=== PATIENT | male | born 1965 | race Caucasian/White ===

== ENCOUNTER 2017-01-01 08:00 | Outpatient (CLI) | payer BC ==
[2017-01-01 18:25] LABS: BUN - BLOOD UREA NITROGEN 11 mg/dL (6-20); CALCIUM 9.2 mg/dL (8.5-10.3); CARBON DIOXIDE - CO2 27 mmol/L (21-32); CHLORIDE 104 mmol/L (101-111); CHOLESTEROL 159 mg/dL; CREATININE 0.9 mg/dL (0.6-1.2); GFR - MDRD 89 (>89); GLUCOSE 103 mg/dL (70-100); HDL CHOLESTEROL 40 mg/dL; LDL/HDL RATIO 2.4 (<3.6); SODIUM 138 mmol/L (135-145); TRIGLYCERIDES 121 mg/dL; VLDL CHOLESTEROL 24 mg/dL
== END 2017-01-01 23:59 ==
LOC: LAB.F 08:00
PROVIDERS: ATTEND Internal Medicine
DX: I10 Essential (primary) hypertension (principal)
CPT/HCPCS: 36415; 80048; 80061

== ENCOUNTER 2017-11-22 08:00 | Outpatient (CLI) | payer BC ==
[2017-11-22 19:21] LABS: BUN - BLOOD UREA NITROGEN 14 mg/dL (6-20); CALCIUM 9.5 mg/dL (8.5-10.3); CARBON DIOXIDE - CO2 28 mmol/L (21-32); CHLORIDE 96 mmol/L (101-111); CHOL/HDL RATIO 5.6 (<5.0); CHOLESTEROL 222 mg/dL; CREATININE 0.9 mg/dL (0.6-1.2); GFR - MDRD 89 (>89); GLUCOSE 114 mg/dL (70-100); HDL CHOLESTEROL 40 mg/dL; SODIUM 134 mmol/L (135-145)
[2017-11-22 19:43] LABS: LDL CHOLESTEROL,DIRECT 107 mg/dL; LDLD/HDL RATIO 2.7 (<3.6)
== END 2017-11-22 08:01 | disposition home or self-care (01) ==
LOC: LAB.F 08:00
PROVIDERS: ATTEND Internal Medicine
DX: I10 Essential (primary) hypertension (principal)
CPT/HCPCS: 36415; 80048; 80061; 83721; 84443

== ENCOUNTER 2018-06-29 14:58 | Outpatient (CLI) | payer BC ==
[2018-06-29 17:45] LABS: ALBUMIN 4.3 g/dL (3.2-5.5); ALBUMIN/GLOBULIN RATIO 1.4 (1.0-2.2); BILIRUBIN,TOTAL 0.6 mg/dL (0.2-1.0); CALCIUM 9.5 mg/dL (8.5-10.3); TOTAL PROTEIN 7.4 g/dL (6.7-8.2)
== END 2018-06-29 23:59 | disposition home or self-care (01) ==
LOC: LAB.F 14:58
PROVIDERS: ATTEND Physician Assistant Medical
DX: I10 Essential (primary) hypertension (principal)
CPT/HCPCS: 36415; 80053

== ENCOUNTER 2018-07-01 16:30 | Outpatient (CLI) | payer BC ==
--- NOTE | 2018-07-01 17:34 | XRAY Report ---
Reason: PAIN IN LT KNEE Procedure Date: 07/01/2018 Accession Number: [id number] / [id number] Procedure: XR - Knee 3 View LT CPT Code: FULL RESULT: EXAM: LEFT KNEE RADIOGRAPHY EXAM DATE: 07/01/2018 04:41 PM. CLINICAL HISTORY: Fall onto concrete 2 weeks ago. Left patellar pain. COMPARISON: None. TECHNIQUE: 3 views. FINDINGS: Bones: 1 x 2 cm bone fragment superolateral aspect of the patella, 4 mm separation. This appears to be well corticated. No offset at the articular cortex. No focal edema over this region. Joints: Tiny effusion. Mild narrowing of the lateral facet patellofemoral compartment without bony reactive changes. Normal medial and lateral compartments. Bones in anatomic alignment. Soft Tissues: Moderate edema over the medial aspect of the patella. IMPRESSION: 1. 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 Correlate with patient area of concern since the greatest degree of anterior knee edema is medial. 2. Tiny joint effusion. 3. Minimal chondromalacia patella. RADIA
== END 2018-07-01 16:31 | disposition home or self-care (01) ==
LOC: DI 16:30
PROVIDERS: ATTEND Physician Assistant Medical
DX: M25.462 Effusion, left knee (principal); M22.42 Chondromalacia patellae, left knee

== ENCOUNTER 2019-01-07 07:55 | Outpatient (CLI) | payer BC ==
[2019-01-07 09:25] LABS: BASOPHILS # (AUTO) 0.1 10^3/uL (0.0-0.1); BASOPHILS % (AUTO) 1.1 %; EOSINOPHILS # (AUTO) 0.1 10^3/uL (0.0-0.7); EOSINOPHILS % (AUTO) 1.8 %; HGB - HEMOGLOBIN 14.6 g/dL (14.0-18.0); LYMPHOCYTES # (AUTO) 2.1 10^3/uL (1.5-3.5); LYMPHOCYTES % (AUTO) 36.8 %; MEAN CORPUSCULAR HEMOGLOBIN 30.7 pg (27.0-31.0); MEAN CORPUSCULAR HGB CONC 34.1 g/dL (32.0-36.0); MEAN CORPUSCULAR VOLUME 90.3 fL (80.0-94.0); MEAN PLATELET VOLUME 7.4 fL (7.4-11.4); MONOCYTES # (AUTO) 0.4 10^3/uL (0.0-1.0); MONOCYTES % (AUTO) 7.7 %; NEUTROPHILS # (AUTO) 3.1 10^3/uL (1.5-6.6); NEUTROPHILS % (AUTO) 52.6 %; PLT - PLATELET COUNT 222 10^3/uL (130-450); RED BLOOD COUNT 4.74 10^6/uL (4.70-6.10); RED CELL DISTRIBUTION WIDTH 12.9 % (12.0-15.0); WHITE BLOOD COUNT 5.8 x10^3/uL (4.8-10.8)
[2019-01-07 09:46] LABS: CHOLESTEROL 179 mg/dL; HDL CHOLESTEROL 45 mg/dL; LDL CHOLESTEROL,CALCULATED 110 mg/dL; LDL/HDL RATIO 2.4 (<3.6); VLDL CHOLESTEROL 24 mg/dL
--- NOTE | 2019-01-07 15:34 | Ultrasound Report ---
Reason: LEG PAIN, LEFT Procedure Date: 01/07/2019 Accession Number: [id number] / [id number] Procedure: US - Duplex Ext Veins Left CPT Code: FULL RESULT: EXAM: LEFT LOWER EXTREMITY VENOUS ULTRASOUND EXAM DATE: 01/07/2019 08:09 AM. CLINICAL HISTORY: LEG PAIN, LEFT. COMPARISON: None. TECHNIQUE: Real-time sonographic vascular imaging was performed by the insole tape stitcher uco through the lower extremity utilizing both color-flow and Doppler spectral analysis. Multiple agency sales representative static images were saved for review. FINDINGS: Common Femoral Vein (CFV): Normal. CFV-GSV Junction: Normal. Profunda Femoral Vein (PFV): Normal. Femoral Vein (FV) Prox: Normal. Femoral Vein (FV) Mid: Normal. Femoral Vein (FV) Dist: Normal. Popliteal Vein: Normal. Posterior Tibial Veins: Normal. Peroneal Veins: Normal. Contralateral Side CFV: Normal. Other: Study limited by bandages and body habitus. Multiple prominent left inguinal lymph nodes with the largest measuring 4.2 x 1.5 x 2.8 cm. No cortical thickening is noted. IMPRESSION: 1. Study limited by body habitus. 2. Multiple prominent left inguinal nodes measuring up to 4.2 x 1.5 x 2.8 cm. 3. No evidence for deep venous thrombosis. RADIA
--- NOTE | 2019-01-09 09:24 | Ultrasound Report ---
Reason: LEG PAIN, LEFT Procedure Date: 01/07/2019 Accession Number: [id number] / [id number] Procedure: US - Duplex Lwr Ext Arterial Bilat CPT Code: FULL RESULT: EXAM: BILATERAL LOWER EXTREMITY ARTERIAL DOPPLER ULTRASOUND EXAM DATE: 01/07/2019 09:20 AM. CLINICAL HISTORY: Leg pain, left. COMPARISON: None. TECHNIQUE: Real-time sonographic vascular imaging was performed by the reservation sales agent, utilizing color-flow, Doppler flow, and spectral analysis. Multiple desk representative static images were saved for review. FINDINGS: Right lower extremity arterial duplex is performed. Vessels are evaluated by grayscale, color Doppler and spectral Doppler. Morphologically, there is no significant focal atherosclerotic disease on grayscale Doppler. All sampled vessels are patent by color Doppler as named below. Spectral Doppler reveals preserved arterial waveforms with brisk systolic upstrokes throughout both lower extremities. The bilateral peroneal arteries are not identified. The following peak systolic velocities are recorded in centimeters per second: Right Lower Extremity: ELECTRONICS MECHANIC APPRENTICE: PSV 95 cm/sec. PSFA: PSV 103 cm/sec. MSFA: PSV 103 cm/sec. DSFA: PSV 99 cm/sec. PFA: PSV 82 cm/sec. POP: PSV 62 cm/sec. HITESH: PSV 39 cm/sec. FILM DEVELOPER: PSV 47 cm/sec. COURTNEY: Not seen. DPA: PSV 20 cm/sec. Left Lower Extremity: ELECTRONICS MECHANIC APPRENTICE: PSV 101 cm/sec. PSFA: PSV 144 cm/sec. MSFA: PSV 114 cm/sec. DSFA: PSV 119 cm/sec. PFA: PSV 101 cm/sec. POP: PSV 98 cm/sec. HITESH: PSV 56 cm/sec. FILM DEVELOPER: PSV 55 cm/sec. COURTNEY: Not seen. DPA: PSV 44 cm/sec. IMPRESSION: Preserved brisk systolic upstrokes throughout both lower extremities with 2 vessel patency to the ankle and good waveform in the dorsalis pedis arteries. Nonvisualization of the peroneal arteries. RADIA
== END 2019-01-07 07:56 | disposition home or self-care (01) ==
LOC: DI 07:55
PROVIDERS: ATTEND Physician Assistant Medical
DX: M79.605 Pain in left leg (principal); R59.0 Localized enlarged lymph nodes; E78.5 Hyperlipidemia, unspecified
CPT/HCPCS: 36415; 80061; 83721; 85025; 93925

== ENCOUNTER 2019-01-09 14:06 | Emergency (ER) | payer BC ==
[2019-01-09] MEDS ORDERED: cefTRIAXone 1 GM VIAL IVP STA (16:44)
[2019-01-09] MEDS ORDERED: VANCOMYCIN INJ 1 GM in SODIUM CHLORIDE 0.9% 500 ML IV STA (16:47)
[2019-01-09] MEDS ORDERED: MUPIROCIN 2% OINT 1 GM TOP STA (16:48)
--- NOTE | 2019-01-09 16:48 | ED Physician Documentation ---
PD HPI SKIN - Stated complaint Stated Complaint: L LEG PX/ SENT BY - Chief complaint Chief Complaint: Ext Problem - History obtained from History obtained from: Patient - History of Present Illness Timing - onset: How many days ago (has had swelling and tenderness with some skin weeping of both legs but more left. Had U/S several days ago which was neg. Has developed areas of redness and tenderness since then. Talked with his vascular surgeon, who directed him to the ER to get IV abs for concern of cellulitis.) Timing - details: Gradual onset Location: LLE Quality / character: Painful, Discolored (red), Swelling, Draining (from prior skin lesions lower leg, but no draining from new red areas.) Associated symptoms: No: Fever, Myalgias Similar symptoms before: Has not had sx before Recently seen: Clinic, Other (had DUplex left leg last week) Review of Systems Constitutional: denies: Fever, Chills, Myalgias Skin: reports: Rash Neurologic: denies: Focal weakness, Numbness PD PAST MEDICAL HISTORY - Past Medical History Past Medical History: Yes Cardiovascular: Hypertension Other Past Medical History: denies other - Past Surgical History Past Surgical History: No - Present Medications Home Medications: Ambulatory Orders Medication Instructions Recorded Confirmed Cephalexin [Keflex] 500 mg PO TID #21 capsule 01/09/19 Doxycycline Hyclate 100 mg PO BID #14 capsule 01/09/19 Losartan Potassium 25 mg PO 01/09/19 01/09/19 Mupirocin 1 applic TP TID #15 g 01/09/19 Triamterene/Hydrochlorothiazid 1 each PO 01/09/19 [Triamterene-Hctz 37.5-25 mg Cp] - Allergies Allergies/Adverse Reactions: Allergies Allergy/AdvReac Type Severity Reaction Status Date / Time No Known Drug Allergies Allergy Verified 01/09/19 14:18 - Social History Does the pt smoke?: No Smoking Status: Never smoker Does the pt drink ETOH?: Yes ETOH Use: Beer, Liquor Does the pt have substance abuse?: No - Immunizations Immunizations are current?: Yes PD ED PE NORMAL - Vitals Vital signs reviewed: Yes - General General: Alert and oriented X 3, Well developed/nourished - Derm Derm: Normal color, Warm and dry - Extremities Extremities: Other (both legs with some scaling and weeping on lower part of legs, mostly anterior. The left leg has also bright redness with tender and no skin lesions on back upper calf and medial thigh area with some feeling of firmness subcut, somewhat linear. Feels c/w phlebitis, presume secondary to duplex compression. The bright redness is not confluent with lower leg scaliness. ) Results - Vitals Vitals: Oxygen O2 Source Room air - Labs Labs: Laboratory Tests 01/09/19 01/09/19 16:50 16:50 WBC 5.4 RBC 4.38 L Hgb 13.8 L Hct 39.8 L MCV 90.9 MCH 31.4 H MCHC 34.5 RDW 13.1 Plt Count 195 MPV 7.7 Neut # (Auto) 2.7 Lymph # (Auto) 2.0 [place] # (Auto) 0.6 Eos # (Auto) 0.1 Baso # (Auto) 0.0 Absolute Nucleated RBC 0.00 Nucleated RBC % 0.1 Sodium 137 Potassium 3.7 Chloride 101 Carbon Dioxide 25 Anion Gap 11.0 BUN 12 Creatinine 1.0 Estimated GFR (MDRD) 78 L Glucose 127 H Calcium 8.7 Total Bilirubin 0.7 AST 30 ALT 41 Alkaline Phosphatase 48 Total Protein 7.0 Albumin 3.9 Globulin 3.1 Albumin/Globulin Ratio 1.3 Lipase 24 PD MEDICAL DECISION MAKING - ED course Complexity details: considered differential (had duplex recently without DVT. His redness/symptoms actually seem c/w superficial phlebitis, and I think anot her Duplex would actually worsen it. Consider cellulitis, but not clearly so. His vascular surgeon sent him for IV abx, and is not unreasonable, so can do that to cover staph and strep. ), d/w patient Departure - Departure Disposition: 01 Home, Self Care Clinical Impression: Leg swelling, Superficial phlebitis Cellulitis Qualifiers: Site of cellulitis: extremity Site of cellulitis of extremity: lower extremity Laterality: left Qualified Code(s): L03.116 - Cellulitis of left lower limb Condition: Stable Record reviewed to determine appropriate education?: Yes Instructions: ED Infec Skin Cellulitis, ED Phlebitis Superficial Follow-Up: Leesa Drake PA-C [Primary Care Provider] - Prescriptions: Cephalexin [Keflex] 500 mg PO TID #21 capsule Doxycycline Hyclate 100 mg PO BID #14 capsule Mupirocin 1 applic TP TID #15 g Comments: The redness around the thigh and possibly the redness in the calf area look like irritation of the surface veins called phlebitis. This would be treated with local warm compresses. He can use some anti-inflammatories such as naproxen or ibuprofen twice daily. Around the lower part of the leg where the skin sores are and then the calf part close to it could be a skin infection. Clean the lower leg with soap and water and apply mupirocin antibiotic ointment twice daily. Use the cephalexin and doxycycline oral antibiotics as directed for a week. Follow-up with your primary care in the next 2 to 3 days, call for an appointment. This will be to see how improvement you are getting. Return if worsening overall. You could follow-up with your vascular surgeon as well and in May even be a more appropriate follow-up if he has appointments available this week. Forms: Activity restrictions Discharge Date/Time: 01/09/19 18:44
[2019-01-09 17:29] LABS: BASOPHILS % (AUTO) 0.6 %; EOSINOPHILS # (AUTO) 0.1 10^3/uL (0.0-0.7); EOSINOPHILS % (AUTO) 1.6 %; HGB - HEMOGLOBIN 13.8 g/dL (14.0-18.0); LYMPHOCYTES % (AUTO) 37.3 %; MEAN CORPUSCULAR HEMOGLOBIN 31.4 pg (27.0-31.0); MEAN CORPUSCULAR HGB CONC 34.5 g/dL (32.0-36.0); MEAN CORPUSCULAR VOLUME 90.9 fL (80.0-94.0); MEAN PLATELET VOLUME 7.7 fL (7.4-11.4); MONOCYTES # (AUTO) 0.6 10^3/uL (0.0-1.0); MONOCYTES % (AUTO) 11.3 %; NEUTROPHILS # (AUTO) 2.7 10^3/uL (1.5-6.6); NEUTROPHILS % (AUTO) 49.2 %; PLT - PLATELET COUNT 195 10^3/uL (130-450); RED BLOOD COUNT 4.38 10^6/uL (4.70-6.10); RED CELL DISTRIBUTION WIDTH 13.1 % (12.0-15.0); WHITE BLOOD COUNT 5.4 x10^3/uL (4.8-10.8)
[2019-01-09 17:47] VITALS: BP 157/97
[2019-01-09 17:47] LABS: ALBUMIN 3.9 g/dL (3.2-5.5); ALBUMIN/GLOBULIN RATIO 1.3 (1.0-2.2); BILIRUBIN,TOTAL 0.7 mg/dL (0.2-1.0); CALCIUM 8.7 mg/dL (8.5-10.3)
[2019-01-09] MEDS ORDERED: diphenhydrAMINE INJ 50 MG/ML VIAL IVP STA (18:12)
[2019-01-09] MEDS ORDERED: diphenhydrAMINE INJ 50 MG/ML VIAL ONE (18:21)
== END 2019-01-09 18:44 | disposition home or self-care (01) ==
LOC: ED 14:06
DX: I80.02 Phlebitis and thrombophlebitis of superficial vessels of left lower extremity (principal); L03.116 Cellulitis of left lower limb; I10 Essential (primary) hypertension
CPT/HCPCS: 36415; 80053; 83690; 85025; 96365; 96375; 99283; A9270; J1200; J3370

== ENCOUNTER 2019-02-21 13:45 | Emergency (ER) | payer BC ==
[2019-02-21] MEDS ORDERED: HYDROcod/ACETAM 5/325 MG TABLET PO STA (13:59)
--- NOTE | 2019-02-21 14:01 | ED Physician Documentation ---
PD HPI HEADACHE - Stated complaint Stated Complaint: [place] - Chief complaint Chief Complaint: Neuro - History obtained from History obtained from: Patient - History of Present Illness Timing - onset: Other (Previously pretty healthy 53-year-old alex, has some issues with recurrent cellulitis and vascular insufficiency in the left leg presents with 2 days of body aches, chills, fever up to 102.9 last night associated with a headache and nausea. Mild cough. No urinary complaints or abdominal pain. No troubles with bowel movement. No sick contacts. No Travel.) Review of Systems Constitutional: reports: Fever, Chills, Myalgias, Fatigue Ears: denies: Loss of hearing, Ear pain Nose: denies: Rhinorrhea / runny nose, Congestion Throat: denies: Sore throat Respiratory: reports: Cough. denies: Dyspnea GI: denies: Abdominal Pain, Nausea, Diarrhea PD PAST MEDICAL HISTORY - Past Medical History Cardiovascular: Hypertension - Past Surgical History Past Surgical History: No - Present Medications Home Medications: Ambulatory Orders Medication Instructions Recorded Confirmed Cephalexin [Keflex] 500 mg PO TID #21 capsule 01/09/19 Doxycycline Hyclate 100 mg PO BID #14 capsule 01/09/19 Losartan Potassium 25 mg PO 01/09/19 01/09/19 Mupirocin 1 applic TP TID #15 g 01/09/19 Triamterene/Hydrochlorothiazid 1 each PO 01/09/19 [Triamterene-Hctz 37.5-25 mg Cp] Clindamycin HCl [Clindamycin 300MG 300 mg PO Q6H #28 capsule 02/21/19 CAP] Oxycodone HCl/Acetaminophen 1 - 2 each PO Q6H PRN #14 tablet 02/21/19 [Percocet 5-325 mg Tablet] - Allergies Allergies/Adverse Reactions: Allergies Allergy/AdvReac Type Severity Reaction Status Date / Time No Known Drug Allergies Allergy Verified 02/21/19 13:51 - Social History Does the pt smoke?: No Smoking Status: Never smoker Does the pt drink ETOH?: Yes Does the pt have substance abuse?: No - Immunizations Immunizations are current?: Yes PD ED PE NORMAL - Vitals Vital signs reviewed: Yes - General General: Alert and oriented X 3, No acute distress - HEENT HEENT: PERRL, EOMI, Pharynx benign - Neck Neck: Supple, no meningeal sign, No bony TTP - Cardiac Cardiac: RRR, No murmur - Respiratory Respiratory: No respiratory distress, Clear bilaterally - Abdomen Abdomen: Non tender - Back Back: No CVA TTP, No spinal TTP - Derm Derm: Normal color, Warm and dry, Other (He has chronic venous stasis changes and chronic appearing cellulitis of the left leg that his significant other says is really no better or worse than normal.) - Neuro Neuro: Alert and oriented X 3, Normal speech Results - Vitals Vitals: Vital Signs - 24 hr 02/21/19 13:50 Temperature 37.5 C Heart Rate 94 Respiratory 20 Rate Blood Pressure 113/76 O2 Saturation 97 Oxygen O2 Source Room air - Labs Labs: Laboratory Tests 02/21/19 02/21/19 02/21/19 14:14 14:14 14:14 WBC 10.2 RBC 4.60 L Hgb 14.5 Hct 42.8 MCV 93.0 MCH 31.5 H MCHC 33.9 RDW 13.0 Plt Count 219 MPV 9.2 Neut # (Auto) 8.2 H Lymph # (Auto) 1.2 L [place] # (Auto) 0.7 Eos # (Auto) 0.0 Baso # (Auto) 0.0 Absolute Nucleated RBC 0.00 Nucleated RBC % 0.0 Sodium 134 L Potassium 3.9 Chloride 94 L Carbon Dioxide 26 Anion Gap 14.0 H BUN 13 Creatinine 1.1 Estimated GFR (MDRD) 70 L Glucose 135 H Lactic Acid 1.5 Calcium 9.0 Total Bilirubin 0.9 AST 28 ALT 40 Alkaline Phosphatase 51 Total Protein 7.4 Albumin 4.1 Globulin 3.3 Albumin/Globulin Ratio 1.2 Lipase 24 - Rads (name of study) Ct Head Radiology: EMP read contemporaneously (NAD) 2v Chest Radiology: EMP read contemporaneously (NAD) PD MEDICAL DECISION MAKING - ED course ED course: 53-year-old gentleman with what sounds like a flulike illness composed of fevers, myalgias, and headache. His examination is normal with a supple neck b oth initially and on reevaluation just prior to discharge 3:13 PM. He also admits that there is absolutely no pain with neck flexion. Therefore I think meningitis is exceedingly unlikely. Otherwise his work-up here was negative. No evidence of pneumonia, sinusitis, intracranial hemorrhage. No UTI symptoms. No abdominal pain. On reexamination prior to discharge though he had a Band-Aid on the left lower extremity it was removed and he had a purulent ulcer there with surrounding cellulitis that now his significant other says is worse than normal and will be treated with clindamycin, noting that we cannot use sulfa drugs because he is on an angiotensin receptor arnaldo. A culture was obtained. Departure - Departure Disposition: 01 Home, Self Care Clinical Impression: Viral syndrome, Cellulitis of left leg Headache Qualifiers: Headache type: unspecified Headache chronicity pattern: acute headache Intractability: not intractable Qualified Code(s): R51 - Headache Condition: Good Record reviewed to determine appropriate education?: Yes Instructions: Cellulitis Dc, ED Viral Syndrome Prescriptions: Clindamycin HCl [Clindamycin 300MG CAP] 300 mg PO Q6H #28 capsule Oxycodone HCl/Acetaminophen [Percocet 5-325 mg Tablet] 1 - 2 each PO Q6H PRN #14 tablet PRN Reason: pain Comments: Return immediately if worsening or if you develop neck stiffness or neck pain as discussed. Also for new or worsening symptoms. Follow-up with your doctor in a week. Return in 48 hours if not improved. We are performing a wound culture, the results should be done in 48-72 hours. If antibiotic change is necessary we will call you. Return if worse in the meantime, especially if you develop increased pain, fevers, cannot keep down the medication. Forms: Activity restrictions
[2019-02-21 14:26] LABS: BASOPHILS % (AUTO) 0.3 %; EOSINOPHILS % (AUTO) 0.1 %; HGB - HEMOGLOBIN 14.5 g/dL (14.0-18.0); LYMPHOCYTES # (AUTO) 1.2 10^3/uL (1.5-3.5); LYMPHOCYTES % (AUTO) 11.8 %; MEAN CORPUSCULAR HEMOGLOBIN 31.5 pg (27.0-31.0); MEAN CORPUSCULAR HGB CONC 33.9 g/dL (32.0-36.0); MEAN PLATELET VOLUME 9.2 fL (7.4-11.4); MONOCYTES # (AUTO) 0.7 10^3/uL (0.0-1.0); MONOCYTES % (AUTO) 6.9 %; NEUTROPHILS # (AUTO) 8.2 10^3/uL (1.5-6.6); NEUTROPHILS % (AUTO) 80.4 %; PLT - PLATELET COUNT 219 10^3/uL (130-450); WHITE BLOOD COUNT 10.2 x10^3/uL (4.8-10.8)
[2019-02-21 14:35] LABS: ALBUMIN 4.1 g/dL (3.2-5.5); ALBUMIN/GLOBULIN RATIO 1.2 (1.0-2.2); BILIRUBIN,TOTAL 0.9 mg/dL (0.2-1.0); CREATININE 1.1 mg/dL (0.6-1.2); TOTAL PROTEIN 7.4 g/dL (6.7-8.2)
--- NOTE | 2019-02-21 14:50 | CT Report ---
Reason: headache Procedure Date: 02/21/2019 Accession Number: [id number] / [id number] Procedure: CT - HEAD WO CPT Code: FULL RESULT: EXAM: CT HEAD EXAM DATE: 02/21/2019 02:24 PM. CLINICAL HISTORY: 53-year-old man with headache. COMPARISON: None. TECHNIQUE: Multiaxial CT images were obtained from the foramen magnum to the vertex. Reformats: Sagittal and coronal. IV contrast: None. In accordance with CT protocol optimization, one or more of the following dose reduction techniques were utilized for this exam: automated exposure control, adjustment of mA and/or KV based on patient size, or use of iterative reconstructive technique. FINDINGS: Parenchyma: No evidence of acute infarct, hemorrhage, or mass lesion. Faint density is present in the globi pallidi bilaterally, left side greater than right, consistent with mineralization. Otherwise, the parenchyma demonstrates normal attenuation characteristics. Ventricles and Extra-axial Spaces: Ventricles are symmetric and normal in size. No extra-axial hemorrhage or fluid collection. Orbits: Unremarkable. Sinuses: Paranasal sinuses and mastoid air cells are clear. Extracranial Soft Tissues and Bones: Soft tissues are unremarkable. No fractures. IMPRESSION: 1. No acute intracranial abnormality. Specifically, no evidence of acute infarct, hemorrhage, or mass lesion. RADIA
--- NOTE | 2019-02-21 14:50 | XRAY Report ---
Reason: cough fever Procedure Date: 02/21/2019 Accession Number: [id number] / [id number] Procedure: XR - Chest 2 View X-Ray CPT Code: 89856 FULL RESULT: EXAM: CHEST RADIOGRAPHY EXAM DATE: 02/21/2019 02:28 PM. CLINICAL HISTORY: Cough and fever for 2 days. COMPARISON: CHEST 2 VIEW PA/LAT 08/30/2015 9:26 AM. TECHNIQUE: 2 views. FINDINGS: Lungs/Pleura: No focal opacities evident. No pleural effusion. No pneumothorax. Normal volumes. Mediastinum: Heart and mediastinal contours are unremarkable. Other: None. IMPRESSION: Negative 2-view chest radiography. RADIA
[2019-02-21] MEDS ORDERED: cephALEXin 250 MG CAPSULE PO STA (15:18)
[2019-02-21] MEDS ORDERED: oxyCODONE 5 MG TABLET PO STA (15:18)
[2019-02-21] MEDS ORDERED: CLINDAMYCIN 150 MG CAPSULE PO STA (15:19)
[2019-02-21 15:30] VITALS: BP 124/70
== END 2019-02-21 15:31 | disposition home or self-care (01) ==
LOC: ED 13:45
DX: L03.116 Cellulitis of left lower limb (principal); L97.229 Non-pressure chronic ulcer of left calf with unspecified severity; B34.9 Viral infection, unspecified; R51 Headache; I73.9 Peripheral vascular disease, unspecified; I87.8 Other specified disorders of veins; I10 Essential (primary) hypertension
CPT/HCPCS: 36415; 70450; 71046; 80053; 83605; 83690; 85025; 87040; 87070; 87077; 87205; 99284; A9270

== ENCOUNTER 2019-12-26 16:50 | Outpatient (CLI) | payer BC ==
--- NOTE | 2019-12-26 15:37 | SLEEP CARE CONSULTATION ---
Information from patient questionnaire entered by Darlene Jacques. I have reviewed and concur with the information entered by Darlene Jacques. This document represents the service I personally performed and the decisions made by me, Alfonso Yu MD, [facility]. History of Present Illness Service Date and Time: 12/26/2019 1520 Reason for Visit: New patient Chief Complaint: reports: Unrefreshed sleep, Snoring, Observed pauses in breathing, Fatigue Duration of Symptoms: 5 years Usual bedtime: 9 pm Time it takes to fall asleep: 5-10 mins Snores at night: Yes Observed to quit breathing while asleep: Yes Sleeps alone due to snoring: No Number of times waking at night: 1-2 Reasons for waking at night: reports: Snoring, Bathroom Toss, Turn, or Twitch while sleeping: No Recalls having dreams: Yes (sometimes) Usually gets out of bed at: 3:45 am Feels refreshed in the morning: No Morning headache: No Sleepy or fatigued during the day: Yes (sometimes) Ever fallen asleep while driving: No Takes day naps: Yes (only on weekends) Dreams during day naps: No Prior sleep studies: No Additional HPI information: I had the pleasure of seeing Mr. Conde along with his today regarding the possibility of him having a sleep disorder. As you know, he is a 54 year old gentleman who complains of loud snore, observed apneas, unrefreshed sleep, and excessive daytime sleepiness for the past years. The patient tells me that he normally goes to bed around 9 pm, and it takes him approximately 5 - 10 minutes to fall asleep. He has been told that he snores loudly and irregularly at night. He has also been observed to stop breathing in his sleep. His can still sleep in the same bed. He can recall waking up on the average of 20+ times during the night. Most of the time he wakes up because of partly due to pain. He has awakened occasionally because of his own snoring, choking, and having to gasp for air. There is a lot of tossing and turning in his sleep. No somniloquy (sleep talking) or somnambulism (sleep walking). Generally he can recall having dreams. In the morning he usually gets up out of the bed around 3:30 a.m. not feeling refreshed nor rested. He usually does not have a morning headache. During the day he complains of feeling sleepy and fatigued. His score on [place] Sleepiness Scale is 8 out of 24. He has never fallen asleep while driving nor has had any accident due to sleepiness. He usually does not take naps during the day. Upon falling asleep during the day he denies having vivid dreams. He has never had sleep paralysis, experienced cataplexy or symptoms of restless leg syndrome. He denies having impaired concentration during the day. 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 Patient is and lives in [place]. Have you smoked in the past 12 months: No Cigarettes per day (20/pack): 16 Years of smokin Quit date: 2015 Smoking Pack Years: 24.0 Alcohol use: Yes Alcohol amount and frequency: 3 drinks a day Caffeine use: Yes Caffeine amount and frequency: 1 1/2 cups a day Family History Family history of sleep disordered breathing: No Allergies and Home Medications Drug allergies reviewed: Yes Home medication list reviewed: Yes Review of Systems Weight gain over past 5 years: 15 Cardiovascular: reports: high blood pressure, leg or foot swelling (varicous veins) Gastrointestinal: reports: heartburn Urinary: denies: incontinence, frequency, urgency, impotence, other Neurological: denies: headaches, seizure, head trauma, disorientation, speech dysfunction, gait or balance problems, fainting or unconsciousness, other Ear/Nose/Throat: reports: tonsillectomy, wisdom teeth removed Endocrine: denies: thyroid disease, history of goiter, sluggishness, too hot or cold, excessive thirst, increased appetite, increased urination, unexplained weakness, other Musculoskeletal: reports: joint pain, back pain, muscle pain or cramping Immunologic: reports: sneezing (allergies), allergies to food or environment (seasonal allergies to environment) Physical Exam Height: 6 ft 2 in Weight: 270 lb Body Mass Index: 34.7 BMI Classification: Obese Impression and Plan IMPRESSION: 1. Obstructive Sleep Apnea-Hypopnea Syndrome, as suggested by history of loud and irregular snoring, observed cessation of breath while asleep, frequent awakenings during the night, unrefreshed sleep, cognitive impairment, and daytime hypersomnolence. Narrow oropharynx and obesity are common predisposing factors for obstructive sleep apnea-hypopnea syndrome. Untreated obstructive sleep apnea can also cause hypertension. Pathophysiology of sleep-disordered breathing was discussed. I recommend proceeding to polysomnography to confirm the diagnosis and to assess severity. If he has significant sleep disordered breathing, a manual CPAP titration study will also be performed to find the optimal treatment pressure. I informed the patient of what the sleep studies involve and after some discussion, he agreed to proceed. Plan: 1. Schedule polysomnography; home sleep apnea test (HSAT) it is the only study approved by his insurance. 2. Avoid long distance driving or when feeling sleepy. 3. Avoid alcohol, sedative and muscle relaxant around bedtime. 4. Attempt to lose weight. 5. Return in 1 to 2 weeks after the study to discuss results and initiate therapy. Visit Type: Telehealth Video Video Type: [place] Patient Location: Home Other Participants: Spouse/Significant Other Location of Provider: Office Patient agrees and consents to this telehealth visit type: Yes Patient agrees to have their insurance billed: Yes Time Spent with Patient (minutes): 15 Provider Statement: I spent 100% of the Telehealth Video Call with the patient with greater than 50% spent counseling the patient and coordination of care.
== END 2019-12-26 16:51 | disposition home or self-care (01) ==
LOC: SC 16:50
PROVIDERS: ATTEND Internal Medicine Pulmonary Disease
DX: R06.83 Snoring (principal); G47.8 Other sleep disorders; R06.81 Apnea, not elsewhere classified; G47.10 Hypersomnia, unspecified; I10 Essential (primary) hypertension; E66.9 Obesity, unspecified; Z68.34 Body mass index [BMI] 34.0-34.9, adult

== ENCOUNTER 2020-03-15 16:51 | Outpatient (CLI) | payer BC ==
--- NOTE | 2020-03-15 17:22 | SLEEP CARE CONSULTATION ---
Information from patient questionnaire entered by Pipo Davis. I have reviewed and concur with the information entered by Pipo Davis. This document represents the service I personally performed and the decisions made by me, Nuzhat Monroy ARNP. History of Present Illness Service Date and Time: 03/15/20201650 Initial [place] Sleepiness Scale score: 8 (IN 2019) Current [place] Sleepiness Scale score: 13 Additional HPI information: DONALD WHEATLEY returns with spouse for follow up and results of the recently performed polysomnography. His HST showed severe obstructive sleep apnea with an AHI of 32.1 and moderate desaturations noted. I explained the pathophysiology behind obstructive sleep apnea. We then spent quite a bit of time discussing different treatment options. For mild obstructive sleep apnea, surgery and oral appliance are alternatives to nasal CPAP therapy but in moderate or severe cases, nasal CPAP is the most effective and reliable treatment. After some discussion, the patient opted to go with the nasal CPAP therapy. Nasal autoCPAP set at 4-15 cmH20 will be ordered with rationale explained. A manual titration study will be ordered if unable to find optimal pressure with office adjustments. I explained how CPAP machine works with sample devices [id number] and [employer] [id number] and what to expect when using the machine. Using CPAP every night in order to get used to it was emphasized. Patient advised to put CPAP mask on before getting into bed so as not to fall asleep without CPAP. To assist acclimation to CPAP use, it could also be used for a short time during day while reading or watching TV. The patient was instructed to call the CPAP supplier to discuss any mechanical problem that may occur. If the mask given is uncomfortable or is difficult to keep on through the night even with adjustment, contact the CPAP supplier as many will replace with another mask style if notified before 30 days. If snoring or perceives is not getting enough air or too much air from the machine, notify this office. AASM patient education PAP tips reviewed and given to patient. Patient counseled not drink alcohol less than 4 hours before bedtime as it can increase snoring and apnea. Patient was cautioned about risks of drowsy driving until sleepiness symptoms resolve. Sleep Study - Results Type of Sleep Study: Home sleep study Prior sleep studies: No Polysomnography/Home Sleep Study results: SLEEP TIME AND EFFICIENCY: The sleep study recording began at 11:03:09 PM and ended at 05:52:00 AM. Total recording time was 408.8 minutes. The total sleep time was 398.5 minutes. The sleep efficiency was 97.5 percent. The patient spent 75.8 minutes supine, and spent 322.8 minutes non-supine. The patients own estimate of sleep time was 7.20 hours. RESPIRATORY DATA: The AHI in this report is indexed to sleep time based on actigraphy. The AASM defines this as FORTUNATO. The AHI on this type 3 Home Sleep Study may understate the AHI determined on a type 1 or 2 study, since EEG is not monitored resulting in the inability to score non-desaturating hypopneas. Based on 4% Calculation: The AHI4% calculation of 32.1 per hour of recording time was based on a total of 131 scored apneas and 82 scored hypopneas with 4% desaturations. Supine AHI4%: 76.0 per hour. Non-supine AHI4%: 21.8 per hour. Oxygen Summary: Patient's baseline O2 saturation was 96.9 %. The patient spent 63.2 minutes at an oxygen saturation less than 90%, and 19.6 minutes less than 85%. The desaturation index was 29.8 events per hour sleep time. The lowest saturation was 68.9 %. SNORING: The percent of the study time spent snoring was 4.8 %. The Snoring Count was 643 . The Snoring Index was 96.8 . PULSE RATE REVIEW: The mean heart rate was 70 beats per minute. The rate ranged from a low of 56 to a high of 91 beats per minute. DIAGNOSIS CODE: Severe obstructive sleep apnea G47.33 Moderate desaturations were noted. Allergies and Home Medications Drug allergies reviewed: Yes (NKDA) Home medication list reviewed: Yes (added an anti-inflammatory for back pain) Review of Systems Review of systems same as previous: Yes (no changes) Physical Exam Heart Rate: 73 O2 Saturation: 98 Height: 6 ft 2 in Weight: 271 lb Body Mass Index: 34.7 BMI Classification: Obese Impression and Plan 1. Obstructive Sleep Apnea-Hypopnea Syndrome, severe, with lowest oxygen saturation of 68.9%. Obviously this is the cause of the patients symptoms of unrefreshed sleep, and excessive daytime sleepiness. Positive pressure therapy could benefit hypertension. As mentioned above, the patient will be started on nasal autoCPAP therapy with pressure set at 4-15 cmH2O. A manual titration study will be completed if unable to find optimal treatment pressure with office adjustments. Compliance guidelines also reviewed. A copy of compliance guidelines will be given for reference at check out. Because the apnea is more severe supine, I instructed to avoid sleeping supine using pillow positioning until able to start CPAP use. * Nasal auto CPAP therapy, pressure at 4-15 cm H2O. * Attempt to lose weight. * Avoid alcohol consumption near bedtime. * Avoid supine sleep until using CPAP. * The patient is again cautioned about driving until sleepiness completely resolves. * Return one month after CPAP obtained. I will assess response to therapy and compliance at that time. Visit Type: In Office Time Spent with Patient (minutes): 20 Provider Statement: I spent 100% of the Face to Face Visit with the patient with greater than 50% spent counseling the patient and coordination of care.
== END 2020-03-15 16:52 | disposition home or self-care (01) ==
LOC: SC 16:51
PROVIDERS: ATTEND Nurse Practitioner Family
DX: G47.33 Obstructive sleep apnea (adult) (pediatric) (principal); E66.9 Obesity, unspecified; Z68.34 Body mass index [BMI] 34.0-34.9, adult
CPT/HCPCS: 99212; 99213

== ENCOUNTER 2020-05-17 16:20 | Outpatient (CLI) | payer BC ==
--- NOTE | 2020-05-17 16:53 | SLEEP CARE CONSULTATION ---
Information from patient questionnaire entered by Cherelle Figueroa. I have reviewed and concur with the information entered by Cherelle Figueroa. This document represents the service I personally performed and the decisions made by me, Nuzhat Monroy ARNP. History of Present Illness Service Date and Time: 05/17/2020 1620 Previous diagnosis: Severe, Obstructive Sleep Apnea-Hypopnea Syndrome AHI: 32.1 Reason for follow up: first compliance Equipment type: CPAP Equipment obtained from: [facility] (new service, no orders yet) Mask style: Nasal Backup mask available: Yes (keep mask when replaced) Last cushion change: 1 month Prior sleep studies: Yes Year and Where: 01/2020 [facility] Type of Sleep Study: Home sleep study HPI additional information: DONALD WHEATLEY was diagnosed to have severe, AHI 32.1, obstructive sleep apnea- hypopnea syndrome and returns via Telehealth video today with spouse for CPAP therapy first compliance follow-up. Sleep Study - Results Prior sleep studies: No CPAP Compliance Data - Data Reviewed with Patient Average duration of nightly device use: 6 hours 16 minutes Compliance rate %: 87 Current pressure setting (cmH2O): 4-15 Average residual AHI: 5.8 Central apnea: 2.6 Obstructive apnea: 2.4 Average large leak: 24.7 L/min Subjective Patient concerns: reports: mask discomfort (pinching bottom of nose when on side), mask leak noise (only on side). denies: aerophagia, air blowing in eyes, condensation in mask/hose, nasal congestion, dry mouth, nose, throat, epistaxis, other Observed to snore while using device: Yes (rarely) Current pressure setting perceived as: too low On therapy, patient: reports: awakening more refreshed, being more awake and alert during the day. denies: sleeping better (mask leak noises interrupting sleep), more rested overall (gets less rest due to mask leaking noises), drowsiness while driving Initial [place] Sleepiness Scale score: 8 (IN 2019) Current [place] Sleepiness Scale score: 10 Allergies and Home Medications Drug allergies reviewed: Yes (NKDA) Home medication list reviewed: Yes (no changes) Review of Systems Review of systems same as previous: Yes (no changes) Physical Exam Vital signs obtained and entered by: Telehealth visit, no vitals obtained Height: 6 ft 2 in Impression and Plan 1. Obstructive Sleep Apnea-Hypopnea Syndrome, severe, with good treatment compliance and fair apnea control with elevated residual AHI. On CPAP therapy, the patient does have better sleep quality and is more rested overall but is having some mask leaking noise that is waking him up too when he sleeps on his side. Mask leaks can be reduced by washing mask daily and changing mask cushions more frequently to improve mask seal and comfort. Additionally, mask leaks predominately from when patient sleeps on their side can be reduced by using a CPAP pillow. Patient advised that a CPAP pillow can be purchased online. Patient's apnea severity and rationale for treatment to reduce apnea, improve sleep quality and reduce cardiovascular and cerebrovascular events was reviewed. I also reviewed the benefit of consistent device use of CPAP for his hypertension. * Change autoCPAP pressure to 8-12 cmH2O * Notify me if snoring with mask or feeling that the pressure is too much or too little * Call this office if any problems using CPAP * Return for follow up in 1-2 months, or sooner if concerns arise Counseling Topics: Sleeping position, Spare mask Visit Type: Telehealth Video Video Type: Doximity Patient Location: Home Other Participants: Spouse/Significant Other Location of Provider: Home Patient agrees and consents to this telehealth visit type: Yes Patient agrees to have their insurance billed: Yes Time Spent with Patient (minutes): 20 Provider Statement: I spent 100% of the Telehealth Video Call with the patient with greater than 50% spent counseling the patient and coordination of care.
== END 2020-05-17 16:21 | disposition home or self-care (01) ==
LOC: SC 16:20
PROVIDERS: ATTEND Nurse Practitioner Family
DX: G47.33 Obstructive sleep apnea (adult) (pediatric) (principal)

== ENCOUNTER 2020-06-11 11:12 | Outpatient (CLI) | payer BC ==
--- NOTE | 2020-06-12 15:35 | Mammography Report ---
MALE BILATERAL DIGITAL DIAGNOSTIC MAMMOGRAM 3D/2D: 06/11/2020 CLINICAL: 54 y.o. male with approximately 2 months of left breast lump and pain. On exam, the left br east demonstrates prominent, soft, mobile male breat tissue. No suspicious skin or nipple abnormaliti es. Right breast is normal on clinical exam. No prior exams were available for comparison. There is gynecomastia in the left breast that correlates with clinical concern, palpable abnormality, and reported tenderness. No significant masses, calcifications, or other findings are seen in either breast. IMPRESSION: BENIGN There is no mammographic evidence of malignancy. Left breast gynecomastia. Recommend clinical follow up for persistent or worsening symptoms, or development of any clinically s uspicious findings. Findings and recommendations were discussed with the patient during today's examination. This exam was interpreted at Station ID: [id number]. NOTE: For mammograms, a report in lay terms will be sent to the patient. Approximately 15% of breast malignancies will not be visualized mammographically. In the management of a palpable breast mass, a negative mammogram must not discourage biopsy of a clinically suspicious lesion. Electronically Signed By: Abner Hutson M.D. aty/:06/11/2020 12:30:11 ACR BI-RADS Category 2: Benign Finding(s) 3342F PARENCHYMAL PATTERN: (A) - The breast(s) demonstrate(s) scattered fibroglandular densities. BI-RADS CATEGORY: (2) - 2 Unspecified - other recall n/a LATERALITY: (B)
== END 2020-06-11 11:13 | disposition home or self-care (01) ==
LOC: DI 11:12
PROVIDERS: ATTEND Family Medicine
DX: N62 Hypertrophy of breast (principal)
CPT/HCPCS: 77066

== ENCOUNTER 2020-06-18 16:02 | Outpatient (CLI) | payer BC ==
--- NOTE | 2020-06-18 16:17 | SLEEP CARE CONSULTATION ---
Information from patient questionnaire entered by Pipo Davis. I have reviewed and concur with the information entered by Pipo Davis. This document represents the service I personally performed and the decisions made by me, Nuzhat Monroy ARNP. History of Present Illness Service Date and Time: 06/18/2020 1600 Previous diagnosis: Severe, Obstructive Sleep Apnea-Hypopnea Syndrome AHI: 32.1 Reason for follow up: one month (followup) Equipment type: CPAP Equipment obtained from: [facility] (getting supplies as needed) Mask style: Nasal Backup mask available: Yes (other mask) Last cushion change: 5 days ago Prior sleep studies: No Year and Where: 01/2020 [facility] Type of Sleep Study: Home sleep study HPI additional information: DONALD WHEATLEY was diagnosed to have severe, AHI 32.1, obstructive sleep apnea- hypopnea syndrome and returns via Telehealth visit today for CPAP therapy one month pressure change follow-up. Sleep Study - Results Type of Sleep Study: Home sleep study Prior sleep studies: No Year and Where: 01/2020 [facility] CPAP Compliance Data - Data Reviewed with Patient Average duration of nightly device use: 5 h 51 min Compliance rate %: 83 Current pressure setting (cmH2O): 8-12 Average residual AHI: 3.9 Central apnea: 2.1 Obstructive apnea: 1.4 Subjective Patient concerns: reports: dry mouth, nose, throat (little dry mouth ). denies: aerophagia, mask discomfort, air blowing in eyes, mask leak noise, condensation in mask/hose, nasal congestion, epistaxis, other Observed to snore while using device: No Current pressure setting perceived as: too low (just a little bit) On therapy, patient: reports: sleeping better, awakening more refreshed, being more awake and alert during the day, more rested overall, other (still waking up frequently at night). denies: drowsiness while driving Initial [place] Sleepiness Scale score: 8 (in 2020) Current [place] Sleepiness Scale score: 8 Allergies and Home Medications Drug allergies reviewed: Yes (NKDA) Home medication list reviewed: Yes (no changes) Review of Systems Review of systems same as previous: Yes (no changes) Physical Exam Vital signs obtained and entered by: Telehealth visit to reduce chance of expos ure during Covid pandemic Height: 6 ft 2 in Impression and Plan 1. Obstructive Sleep Apnea-Hypopnea Syndrome, severe, with good treatment compliance and fair apnea control. On CPAP therapy, the patient has better sleep quality and is more rested overall. He is still getting used to using the CPAP machine but is persevering. He feels as if the pressure is still a little low when using and thinks a little more would feel better with less air hunger. I will increase his pressures to 9-13 cm H2O to reduce air hunger and have him follow up in 1-2 months. Patient advised to contact me if pressure change is uncomfortable so that it can be adjusted. Goals for apnea control discussed. Patient's apnea severity and rationale for treatment to reduce apnea, improve sleep quality and reduce cardiovascular and cerebrovascular events was reviewed. I also reviewed the benefit of consistent device use of CPAP for hypertension. * Change autoCPAP pressure to 9-13 cmH2O * Notify me if snoring with mask or feeling that the pressure is too much or too little * Attempt to lose weight * Call this office if any problems using CPAP * Return for follow up in 1-2 months, or sooner if concerns arise Counseling Topics: Spare mask Visit Type: Telehealth Video Video Type: Doximity Patient Location: Home Location of Provider: Office Patient agrees and consents to this telehealth visit type: Yes Time Spent with Patient (minutes): 16 Provider Statement: I spent 100% of the Telehealth Video Call with the patient with greater than 50% spent counseling the patient and coordination of care.
== END 2020-06-18 16:03 | disposition home or self-care (01) ==
LOC: SC 16:02
PROVIDERS: ATTEND Nurse Practitioner Family
DX: G47.33 Obstructive sleep apnea (adult) (pediatric) (principal)

== ENCOUNTER 2020-07-24 12:37 | Outpatient (CLI) | payer BC ==
--- NOTE | 2020-07-24 11:03 | SLEEP CARE CONSULTATION ---
Information from patient questionnaire entered by Pipo Davis. I have reviewed and concur with the information entered by Pipo Davis. This document represents the service I personally performed and the decisions made by me, Nuzhat Monroy ARNP. History of Present Illness Service Date and Time: 07/24/2020 1040 Previous diagnosis: Severe, Obstructive Sleep Apnea-Hypopnea Syndrome AHI: 32.1 Reason for follow up: one month (pressure change) Equipment type: CPAP Equipment obtained from: [employer] (getting supplies as needed) Mask style: Nasal Backup mask available: Yes (other mask) Prior sleep studies: No Year and Where: 01/2020 [facility] Type of Sleep Study: Home sleep study HPI additional information: DONALD WHEATLEY was diagnosed to have severe, AHI 32.1, obstructive sleep apnea- hypopnea syndrome and returns via Telehealth visit today for CPAP therapy one month pressure change follow-up. Sleep Study - Results Type of Sleep Study: Home sleep study Prior sleep studies: No Year and Where: 01/2020 [facility] CPAP Compliance Data - Data Reviewed with Patient Average duration of nightly device use: 3 h 39 min Compliance rate %: 17 Current pressure setting (cmH2O): 9-10 Average residual AHI: 3.7 Subjective Missed days of use due to: reports: mask issues, illness (hurt back and having trouble sleeping) Patient concerns: reports: mask discomfort, mask leak noise (when he rolls over), dry mouth, nose, throat (dry mouth). denies: aerophagia, air blowing in eyes, condensation in mask/hose, nasal congestion, epistaxis, other Observed to snore while using device: No Current pressure setting perceived as: comfortable On therapy, patient: reports: sleeping better, being more awake and alert during the day, more rested overall. denies: awakening more refreshed, drowsiness while driving Initial [place] Sleepiness Scale score: 8 (in 2020) Current [place] Sleepiness Scale score: 10 Allergies and Home Medications Drug allergies reviewed: Yes (NKDA) Home medication list reviewed: Yes (no changes) Review of Systems Review of systems same as previous: No (back injury, bulging disc; may need surgery) Physical Exam Vital signs obtained and entered by: Telehealth visit to reduce exposure during Covid pandemic Height: 6 ft 2 in Impression and Plan 1. Obstructive Sleep Apnea-Hypopnea Syndrome, severe, with poor treatment compliance and good apnea control. On CPAP therapy, the patient has better sleep quality and is more rested overall. He hurt his back, has a bulging disc for which he may need surgery. Since then he has not been using the CPAP machine due to pain and not sleeping in his bed. He states the mask has not felt comfortable with some leaking noises waking him up and he would like to try a full face mask. I will write a prescription for him to try a full face mask. Mask leaks can be reduced by washing mask daily and changing mask cushions more frequently to improve mask seal and comfort. Additionally, mask leaks predominately from when patient sleeps on their side can be reduced by using a CPAP pillow which can be purchased online. He also has occasional mouth dryness. Oral dryness can be reduced by adjusting humidity setting higher or heated hose lower or by adjusting both settings. Printed instructions given on how to change humidity and heated hose settings with rationale explaining why to change. Oral dryness can also be reduced by reducing mask leaks. Patient's apnea severity and rationale for treatment to reduce apnea, improve sleep quality and reduce cardiovascular and cerebrovascular events was reviewed. I also reviewed the benefit of consistent device use of CPAP for hypertension. * Continue auto CPAP pressure at 9-10 cmH2O * Try full face mask * Notify me if snoring with mask or feeling that the pressure is too much or too little * Attempt to lose weight * Call this office if any problems using CPAP * Return for follow up in 3 months , or sooner if concerns arise Counseling Topics: Spare mask Visit Type: Telehealth Phone Video Type: Agustin Patient Location: Car Location of Provider: Office Patient agrees and consents to this telehealth visit type: Yes Patient agrees to have their insurance billed: Yes Provider Statement: I spent 100% of the Telehealth Phone Call with the patient with greater than 50% spent counseling the patient and coordination of care.
== END 2020-07-24 12:38 | disposition home or self-care (01) ==
LOC: SC 12:37
PROVIDERS: ATTEND Nurse Practitioner Family
DX: G47.33 Obstructive sleep apnea (adult) (pediatric) (principal)

== ENCOUNTER 2020-07-29 12:12 | Outpatient (CLI) | payer BC ==
[2020-07-29 15:42] LABS: BASOPHILS # (AUTO) 0.1 10^3/uL (0.0-0.1); BASOPHILS % (AUTO) 0.8 %; EOSINOPHILS # (AUTO) 0.1 10^3/uL (0.0-0.7); EOSINOPHILS % (AUTO) 1.2 %; HGB - HEMOGLOBIN 14.8 g/dL (14.0-18.0); LYMPHOCYTES # (AUTO) 1.9 10^3/uL (1.5-3.5); LYMPHOCYTES % (AUTO) 31.7 %; MEAN CORPUSCULAR HEMOGLOBIN 30.9 pg (27.0-31.0); MEAN CORPUSCULAR HGB CONC 34.4 g/dL (32.0-36.0); MEAN CORPUSCULAR VOLUME 89.8 fL (80.0-94.0); MONOCYTES # (AUTO) 0.4 10^3/uL (0.0-1.0); MONOCYTES % (AUTO) 6.9 %; NEUTROPHILS # (AUTO) 3.5 10^3/uL (1.5-6.6); NEUTROPHILS % (AUTO) 59.2 %; PLT - PLATELET COUNT 245 10^3/uL (130-450); RED BLOOD COUNT 4.79 10^6/uL (4.70-6.10); RED CELL DISTRIBUTION WIDTH 12.1 % (12.0-15.0); WHITE BLOOD COUNT 5.9 x10^3/uL (4.8-10.8)
[2020-07-29 16:22] LABS: ALBUMIN 4.4 g/dL (3.2-5.5); ALBUMIN/GLOBULIN RATIO 1.5 (1.0-2.2); ALKALINE PHOSPHATASE 64 IU/L (42-121); ALT ALANINE AMINOTRANSFERASE 52 IU/L (10-60); AST ASPARTATE AMINOTRANSFERASE 31 IU/L (10-42); BILIRUBIN,TOTAL 0.8 mg/dL (0.2-1.0); BUN - BLOOD UREA NITROGEN 18 mg/dL (6-20); CALCIUM 9.7 mg/dL (8.5-10.3); CARBON DIOXIDE - CO2 27 mmol/L (21-32); CHLORIDE 99 mmol/L (101-111); CHOL/HDL RATIO 4.9 (<5.0); CHOLESTEROL 216 mg/dL; CREATININE 0.9 mg/dL (0.6-1.2); GLUCOSE 258 mg/dL (70-100); HDL CHOLESTEROL 44 mg/dL; LDL CHOLESTEROL,CALCULATED 115 mg/dL; LDL/HDL RATIO 2.6 (<3.6); MAGNESIUM 2.2 mg/dL (1.7-2.8); SODIUM 136 mmol/L (135-145); TOTAL PROTEIN 7.4 g/dL (6.7-8.2); VLDL CHOLESTEROL 57 mg/dL
[2020-07-29 16:38] LABS: CREATININE,URINE 300.3 mg/dL; MICROALBUM/CREATININE RATIO,UR 5.3 ug/mg (<30.0); MICROALBUMIN,URINE 1.6 mg/dL (0-300.0)
[2020-07-29 20:36] LABS: HEMOGLOBIN A1c% 9.6 % (4.27-6.07)
== END 2020-07-29 12:13 | disposition home or self-care (01) ==
LOC: LAB.S 12:12
PROVIDERS: ATTEND Physician Assistant
DX: I10 Essential (primary) hypertension (principal); R73.01 Impaired fasting glucose; E78.5 Hyperlipidemia, unspecified; E74.39 Other disorders of intestinal carbohydrate absorption; E66.9 Obesity, unspecified
CPT/HCPCS: 36415; 80053; 80061; 82043; 82570; 83036; 83721; 83735; 85025

== ENCOUNTER 2020-10-08 15:34 | Outpatient (CLI) | payer BC ==
[2020-10-08 20:15] LABS: CALCIUM 9.5 mg/dL (8.5-10.3); CREATININE 0.8 mg/dL (0.6-1.2); POTASSIUM 3.8 mmol/L (3.5-5.0)
[2020-10-08 20:25] LABS: MICROALBUM/CREATININE RATIO,UR 4.4 ug/mg (<30.0); MICROALBUMIN,URINE 0.4 mg/dL (0-300.0)
[2020-10-08 20:47] LABS: ESTIMATED AVERAGE GLUCOSE 186 mg/dL (70-100); HEMOGLOBIN A1c% 8.1 % (4.27-6.07)
== END 2020-10-08 15:35 | disposition home or self-care (01) ==
LOC: LAB.S 15:34
PROVIDERS: ATTEND Physician Assistant
DX: E11.9 Type 2 diabetes mellitus without complications (principal)
CPT/HCPCS: 36415; 80048; 82043; 82570; 83036

== ENCOUNTER 2020-10-22 16:03 | Outpatient (CLI) | payer BC ==
--- NOTE | 2020-10-22 16:19 | SLEEP CARE CONSULTATION ---
Information from patient questionnaire entered by Pipo Davis. I have reviewed and concur with the information entered by Pipo Davis. This document represents the service I personally performed and the decisions made by me, Nuzhat Monroy ARNP. History of Present Illness Service Date and Time: 10/22/2020 1600 Previous diagnosis: Severe, Obstructive Sleep Apnea-Hypopnea Syndrome AHI: 32.1 Reason for follow up: three month (followup) Equipment type: CPAP Equipment obtained from: [employer] (getting supplies as needed) Mask style: Nasal Backup mask available: Yes (other mask) Prior sleep studies: No Year and Where: 01/2020 [facility] Type of Sleep Study: Home sleep study HPI additional information: DONALD WHEATLEY was diagnosed to have severe, AHI 32.1, obstructive sleep apnea- hypopnea syndrome and returns via Telehealth visit today for CPAP therapy 3 month follow-up. CPAP Compliance Data - Data Reviewed with Patient Average duration of nightly device use: 4 h 31 min Compliance rate %: 16 Current pressure setting (cmH2O): 9-10 Average residual AHI: 3.0 Subjective Missed days of use due to: reports: mask issues (wanting to try a full face mask, waiting for the mask to be delivered) Patient concerns: reports: mask discomfort, mask leak noise, other (hurts under his nose/too much pressure). denies: aerophagia, air blowing in eyes, condensation in mask/hose, nasal congestion, dry mouth, nose, throat, epistaxis Observed to snore while using device: No Current pressure setting perceived as: comfortable On therapy, patient: reports: other (he is not able to sleep well with mask due to leak noises). denies: sleeping better, awakening more refreshed, being more awake and alert during the day, more rested overall, drowsiness while driving Initial [place] Sleepiness Scale score: 8 (in 2020) Current [place] Sleepiness Scale score: 8 Allergies and Home Medications Drug allergies reviewed: Yes (NKDA) Home medication list reviewed: Yes (added Glipizide for DM, increased Metformin to 2000 mg daily) Review of Systems Review of systems same as previous: Yes (no changes) Physical Exam Vital signs obtained and entered by: Telehealth visit to reduce exposure during Covid pandemic Height: 6 ft 2 in Impression and Plan 1. Obstructive Sleep Apnea-Hypopnea Syndrome, severe, with poor treatment compliance and good apnea control. On CPAP therapy, the patient states he is not sleeping well due to being woken up by the mask leaking. He has not been able to increase his CPAP use due to the mask issues. The nasal mask makes the area under his nose hurt and leaks, the leaking wakes him up. He was not able to change to the full face mask that I recommended and wrote a script at the last appointment. He is still trying to wear the mask but does not tolerate the CPAP well at this point. Patient's apnea severity and rationale for treatment to reduce apnea, improve sleep quality and reduce cardiovascular and cerebrovascular events was reviewed. I also reviewed the benefit of consistent device use of CPAP for hypertension. * Continue auto CPAP pressure at 9-10 cmH2O * Notify me if snoring with mask or feeling that the pressure is too much or too little * Attempt to lose weight * Call this office if any problems using CPAP * Return for follow up in 1-2 months, or sooner if concerns arise Counseling Topics: Spare mask, Weight loss health impact Visit Type: Telehealth Video Video Type: VSee Patient Location: Home Location of Provider: Office Patient agrees and consents to this telehealth visit type: Yes Patient agrees to have their insurance billed: Yes Time Spent with Patient (minutes): 13 Provider Statement: I spent 100% of the Telehealth Video Call with the patient with greater than 50% spent counseling the patient and coordination of care.
== END 2020-10-22 16:04 | disposition home or self-care (01) ==
LOC: SC 16:03
PROVIDERS: ATTEND Nurse Practitioner Family
DX: G47.33 Obstructive sleep apnea (adult) (pediatric) (principal)

== ENCOUNTER 2020-12-17 16:15 | Outpatient (CLI) | payer BC ==
--- NOTE | 2020-12-17 16:25 | SLEEP CARE CONSULTATION ---
Information from patient questionnaire entered by Pipo Davis. I have reviewed and concur with the information entered by Pipo Davis. This document represents the service I personally performed and the decisions made by me, Nuzhat Monroy ARNP. History of Present Illness Service Date and Time: 12/17/2020 1600 Previous diagnosis: Severe, Obstructive Sleep Apnea-Hypopnea Syndrome AHI: 32.1 Reason for follow up: other (2-month followup) Equipment type: CPAP Equipment obtained from: [employer] (getting supplies as needed) Mask style: Full face Backup mask available: No (will keep old mask when replaced) Last cushion change: 2 weeks Prior [facility]: No [facility] of [facility] Study: Home sleep study HPI additional information: DONALD WHEATLEY was diagnosed to have severe, AHI 32.1, obstructive sleep apnea- hypopnea syndrome and returned today for CPAP therapy two month follow-up. CPAP Compliance Data - Data Reviewed with Patient Average duration of nightly device use: 4 h 35 min Compliance rate %: 17 Current pressure setting (cmH2O): 9-10 Average residual AHI: 2.3 Subjective Missed days of use due to: reports: mask issues Patient concerns: denies: aerophagia, mask discomfort, air blowing in eyes, mask leak noise, condensation in mask/hose, nasal congestion, dry mouth, nose, throat, epistaxis, other Observed to snore while using device: No Current pressure setting perceived as: comfortable On therapy, patient: reports: sleeping better, awakening more refreshed, being more awake and alert during the day, more rested overall. denies: drowsiness while driving Initial [place] Sleepiness Scale score: 8 (in 2019) Current [place] Sleepiness Scale score: 9 Allergies and Home Medications Home medication list reviewed: Yes (no changes) Review of Systems Review of systems same as previous: Yes (no changes) Physical Exam Vital signs obtained and entered by: Telehealth visit to reduce exposure during Covid pandemic Height: 6 ft 2 in Impression and Plan 1. Obstructive Sleep Apnea-Hypopnea Syndrome, severe, with poor treatment compliance and good apnea control. On CPAP therapy, the patient has better sleep quality and is more rested overall. His compliance in the last week has increased since he was able to change to a full face mask. He finds it more comfortable and is not having air leaking. Patient's apnea severity and rationale for treatment to reduce apnea, improve sleep quality and reduce cardiovascular and cerebrovascular events was reviewed. I also reviewed the benefit of consistent device use of CPAP for hypertension. * Continue auto CPAP pressure at 9-10 cmH2O * Notify me if snoring with mask or feeling that the pressure is too much or too little * Attempt to lose weight * Call this office if any problems using CPAP * Return for follow up in 1-2 months, or sooner if concerns arise Counseling Topics: Spare mask, Weight loss health impact Visit Type: Telehealth Video Video Type: VSee Patient Location: Car Location of Provider: Office Patient agrees and consents to this telehealth visit type: Yes Time Spent with Patient (minutes): 11 Provider Statement: I spent 100% of the Telehealth Video Call with the patient with greater than 50% spent counseling the patient and coordination of care.
== END 2020-12-17 16:16 | disposition home or self-care (01) ==
LOC: SC 16:15
PROVIDERS: ATTEND Nurse Practitioner Family
DX: G47.33 Obstructive sleep apnea (adult) (pediatric) (principal)

== ENCOUNTER 2021-01-06 15:54 | Outpatient (CLI) | payer BC ==
[2021-01-06 20:27] LABS: CALCIUM 9.7 mg/dL (8.5-10.3); CREATININE 0.8 mg/dL (0.6-1.2); POTASSIUM 3.7 mmol/L (3.5-5.0)
[2021-01-06 20:35] LABS: CREATININE,URINE 110.7 mg/dL; MICROALBUM/CREATININE RATIO,UR 2.7 ug/mg (<30.0); MICROALBUMIN,URINE 0.3 mg/dL (0-300.0)
[2021-01-06 20:48] LABS: ESTIMATED AVERAGE GLUCOSE 134 mg/dL (70-100); HEMOGLOBIN A1c% 6.3 % (4.27-6.07)
== END 2021-01-06 15:55 | disposition home or self-care (01) ==
LOC: LAB.S 15:54
PROVIDERS: ATTEND Physician Assistant
DX: E11.9 Type 2 diabetes mellitus without complications (principal)
CPT/HCPCS: 36415; 80048; 82043; 82570; 83036

== ENCOUNTER 2021-02-18 16:44 | Outpatient (CLI) | payer BC ==
--- NOTE | 2021-02-18 17:03 | SLEEP CARE CONSULTATION ---
Information from patient questionnaire entered by Darlene Jacques. I have reviewed and concur with the information entered by Darlene Jacques. This document represents the service I personally performed and the decisions made by me, Nuzhat Monroy ARNP. History of Present Illness Service Date and Time: 02/18/2021 1644 Previous diagnosis: Severe, Obstructive Sleep Apnea-Hypopnea Syndrome AHI: 32.1 (in 2019) Reason for follow up: other (2 month) Equipment type: CPAP Equipment obtained from: [employer] (getting supplies but they are not the right ones; followed up with them but still not getting supplies fixed) Mask style: Full face Backup mask available: No (not getting right mask supplies) Last cushion change: still need supplies Prior sleep studies: Yes Year and Where: 2019 - [facility] Type of Sleep Study: Home sleep study HPI additional information: DONALD WHEATLEY was diagnosed to have severe, AHI 32.1, obstructive sleep apnea- hypopnea syndrome and returns via Telehealth visit today with spouse for CPAP therapy 2 month follow-up. CPAP Compliance Data - Data Reviewed with Patient Average duration of nightly device use: 5 hr 5 min Compliance rate %: 33 Current pressure setting (cmH2O): 11-12 Humidity settin Average residual AHI: 1.5 Subjective Missed days of use due to: reports: mask issues (some times too hot due to weather), other (nightly heartburn) Patient concerns: reports: mask discomfort (still trying to get used to mask on face), condensation in mask/hose, dry mouth, nose, throat. denies: aerophagia, air blowing in eyes, mask leak noise, nasal congestion, epistaxis, other Observed to snore while using device: No Current pressure setting perceived as: comfortable (but some times too high at onset and sometimes too low in middle of night) On therapy, patient: reports: sleeping better, more rested overall (some days does). denies: drowsiness while driving Initial [place] Sleepiness Scale score: 8 (in 2019) Current [place] Sleepiness Scale score: 9 Allergies and Home Medications Home medication list reviewed: Yes (restarted heartburn meds: Omeprazole) Review of Systems Review of systems same as previous: No (worse heartburn) Physical Exam Vital signs obtained and entered by: Telehealth visit to reduce exposure during Covid pandemic Height: 6 ft 2 in Impression and Plan 1. Obstructive Sleep Apnea-Hypopnea Syndrome, severe, with poor treatment compliance and good apnea control. On CPAP therapy, the patient has better sleep quality and is more rested overall. Patient and both a little frustrated with DME company. They sent them the wrong mask and they have not yet been able to contact them to they will find out how to exchange for the right mask. They are not getting any response to their phone calls and are just getting a little frustrated. I will have them speak with our discharge accounts payable or receivable clerk to try and see if we can help them resolve this issue. Patient also just started back on his heartburn medication. Heartburn at night has been limiting his use of the CPAP machine. He feels it is due to what he is eating and not necessarily the CPAP device. He is still committed to trying to be successful with the CPAP machine. I encouraged him to use it with all sleep. Using it for more days will help improve his compliance as he is using it on average over 5 hours a night on the nights he does use it. He voiced understanding and agreement with this plan of care. Patient's apnea severity and rationale for treatment to reduce apnea, improve sleep quality and reduce cardiovascular and cerebrovascular events was reviewed. I also reviewed the benefit of consistent device use of CPAP for hypertension. * Continue auto CPAP pressure at 11-12 cmH2O * Notify me if snoring with mask or feeling that the pressure is too much or too little * Attempt to lose weight * Call this office if any problems using CPAP * Return for follow up in 1-2 months, or sooner if concerns arise Counseling Topics: Spare mask, Weight loss health impact Visit Type: Telehealth Video Video Type: VSee Patient Location: Home Other Participants: Spouse/Significant Other Location of Provider: Office Patient agrees and consents to this telehealth visit type: Yes Patient agrees to have their insurance billed: Yes Time Spent with Patient (minutes): 23 Provider Statement: I spent 100% of the Telehealth Video Call with the patient with greater than 50% spent counseling the patient and coordination of care.
== END 2021-02-18 16:45 | disposition home or self-care (01) ==
LOC: SC 16:44
PROVIDERS: ATTEND Nurse Practitioner Family
DX: G47.33 Obstructive sleep apnea (adult) (pediatric) (principal)

== ENCOUNTER 2021-04-22 16:12 | Outpatient (CLI) | payer BC ==
--- NOTE | 2021-04-22 16:26 | SLEEP CARE CONSULTATION ---
Information from patient questionnaire entered by Pipo Davis. I have reviewed and concur with the information entered by Pipo Davis. This document represents the service I personally performed and the decisions made by me, Nuzhat Monroy ARNP. History of Present Illness Service Date and Time: 04/22/2021 1612 Previous diagnosis: Severe, Obstructive Sleep Apnea-Hypopnea Syndrome AHI: 32.1 (in 2019) Reason for follow up: other (2-month followup) Equipment type: CPAP Equipment obtained from: [employer] (getting supplies as needed) Mask style: Full face Backup mask available: Yes (old mask) Prior sleep studies: Yes Year and Where: 2020 - [facility] Type of Sleep Study: Home sleep study HPI additional information: DONALD WHEATLEY was diagnosed to have severe, AHI 32.1, obstructive sleep apnea- hypopnea syndrome and returns via video telehealth visit today for CPAP therapy 2 month follow-up. CPAP Compliance Data - Data Reviewed with Patient Average duration of nightly device use: 4 h 4 min Compliance rate %: 22 Current pressure setting (cmH2O): 11-12 Average residual AHI: 1.1 Subjective Missed days of use due to: reports: mask issues, other (seeing grandchildren) Patient concerns: reports: mask discomfort (waking him up), condensation in mask/hose, dry mouth, nose, throat (dry mouth better with increase in humidity). denies: aerophagia, air blowing in eyes, mask leak noise, nasal congestion, epistaxis, other Observed to snore while using device: No Current pressure setting perceived as: too low On therapy, patient: reports: sleeping better (some days it is not as restful because he will feel leaks that wake him up), awakening more refreshed, being more awake and alert during the day, more rested overall. denies: drowsiness while driving Initial [place] Sleepiness Scale score: 8 (in 2020) Current [place] Sleepiness Scale score: 5 Allergies and Home Medications Home medication list reviewed: Yes (no changes) Review of Systems Review of systems same as previous: Yes (no changes) Physical Exam Vital signs obtained and entered by: Telehealth visit to reduce exposure during Covid pandemic Height: 6 ft 2 in Impression and Plan 1. Obstructive Sleep Apnea-Hypopnea Syndrome, severe, with poor treatment compliance and good apnea control. On CPAP therapy, the patient has better sleep quality and is more rested overall. Patient has had his grandchildren over and he has not been using his CPAP as much. He has had some difficulty because he turned his humidity up which did help with the mouth dryness but now he has some condensation in the tubing. I encouraged him to turn up his heated hose to help dry this out. Patient voiced understanding. Patient was encouraged to continue to try and use his machine more days. He is using it just over 4 hours on average and just needs more days to get his compliance up. Compliance guidelines reviewed for insurance coverage. Patient was counseled on the difference between meeting compliance and optimal use of CPAP. Optimal use of CPAP is use of CPAP with all sleep to obtain maximum benefit of treatment. Patient is encouraged to use CPAP with all sleep. Patient's apnea severity and rationale for treatment to reduce apnea, improve sleep quality and reduce cardiovascular and cerebrovascular events was reviewed. I also reviewed the benefit of consistent device use of CPAP for hypertension. Patient was encouraged to lose weight for their overall health and to reduce apneas. * Continue auto CPAP pressure at 11-12 cmH2O * Notify me if snoring with mask or feeling that the pressure is too much or too little * Attempt to lose weight * Call this office if any problems using CPAP * Return for follow up in 1-2 months, or sooner if concerns arise Counseling Topics: Spare mask, Weight loss health impact Visit Type: Telehealth Video Video Type: VSee Patient Location: Home Location of Provider: Office Patient agrees and consents to this telehealth visit type: Yes Patient agrees to have their insurance billed: Yes Time Spent with Patient (minutes): 13 Provider Statement: I spent 100% of the Telehealth Video Call with the patient with greater than 50% spent counseling the patient and coordination of care.
== END 2021-04-22 16:13 | disposition home or self-care (01) ==
LOC: SC 16:12
PROVIDERS: ATTEND Nurse Practitioner Family
DX: G47.33 Obstructive sleep apnea (adult) (pediatric) (principal)

== ENCOUNTER 2021-06-14 11:27 | Outpatient (CLI) | payer BC ==
--- NOTE | 2021-06-14 12:16 | XRAY Report ---
PROCEDURE: Ankle 3 View RT INDICATIONS: ANKLE JOINT PAIN, RIGHT TECHNIQUE: 3 views of the ankle were acquired. COMPARISON: Correlation is made with foot plain films, 06/14/2014 FINDINGS: Bones: No fractures or dislocations. Ankle mortise is normally aligned. No suspicious bony lesions . The talar dome demonstrates an unremarkable appearance. Age-appropriate degenerative changes are see n. Incidental note is made of an enthesophyte at the Achilles insertion. Soft tissues: Generalized soft tissue swelling is seen. IMPRESSION: Generalized soft tissue swelling can be seen, without an acute abnormality identified. If it would be helpful for clinical management decision making, please consider a dedicated, schedule d ankle MRI for further evaluation (assuming that there is no contraindication). Reviewed by: Wilian Cheek MD on 06/14/2021 11:15 AM [facility] Approved by: Wilian Cheek MD on 06/14/2021 11:15 AM [facility] Station ID: [id number]
== END 2021-06-14 11:28 | disposition home or self-care (01) ==
LOC: DI.S 11:27
PROVIDERS: ATTEND Internal Medicine
DX: M25.571 Pain in right ankle and joints of right foot (principal); R93.6 Abnormal findings on diagnostic imaging of limbs; R93.89 Abnormal findings on diagnostic imaging of other specified body structures

== ENCOUNTER 2021-06-15 12:25 | Outpatient (CLI) | payer BC ==
[2021-06-15 18:11] LABS: BASOPHILS % (AUTO) 0.9 %; EOSINOPHILS # (AUTO) 0.1 10^3/uL (0.0-0.7); EOSINOPHILS % (AUTO) 1.5 %; HCT - HEMATOCRIT 43.7 % (42.0-52.0); HGB - HEMOGLOBIN 15.1 g/dL (14.0-18.0); LYMPHOCYTES # (AUTO) 1.7 10^3/uL (1.5-3.5); LYMPHOCYTES % (AUTO) 36.5 %; MEAN CORPUSCULAR HEMOGLOBIN 30.6 pg (27.0-31.0); MEAN CORPUSCULAR HGB CONC 34.6 g/dL (32.0-36.0); MEAN CORPUSCULAR VOLUME 88.5 fL (80.0-94.0); MEAN PLATELET VOLUME 9.9 fL (7.4-11.4); MONOCYTES # (AUTO) 0.5 10^3/uL (0.0-1.0); MONOCYTES % (AUTO) 11.3 %; NEUTROPHILS # (AUTO) 2.3 10^3/uL (1.5-6.6); NEUTROPHILS % (AUTO) 49.6 %; PLT - PLATELET COUNT 198 10^3/uL (130-450); RED BLOOD COUNT 4.94 10^6/uL (4.70-6.10); RED CELL DISTRIBUTION WIDTH 12.7 % (12.0-15.0); WHITE BLOOD COUNT 4.7 x10^3/uL (4.8-10.8)
[2021-06-15 18:24] LABS: ALBUMIN 4.5 g/dL (3.2-5.5); ALBUMIN/GLOBULIN RATIO 1.6 (1.0-2.2); ALKALINE PHOSPHATASE 46 IU/L (42-121); ALT ALANINE AMINOTRANSFERASE 63 IU/L (10-60); AST ASPARTATE AMINOTRANSFERASE 41 IU/L (10-42); BILIRUBIN,TOTAL 0.8 mg/dL (0.2-1.0); BUN - BLOOD UREA NITROGEN 16 mg/dL (6-20); CALCIUM 9.3 mg/dL (8.5-10.3); CARBON DIOXIDE - CO2 26 mmol/L (21-32); CHLORIDE 101 mmol/L (101-111); CHOL/HDL RATIO 4.3 (<5.0); CHOLESTEROL 185 mg/dL; CREATININE 0.8 mg/dL (0.6-1.2); GFR - MDRD 101 (>89); GLUCOSE 144 mg/dL (70-100); HDL CHOLESTEROL 43 mg/dL; LDL CHOLESTEROL,CALCULATED 107 mg/dL; LDL/HDL RATIO 2.5 (<3.6); POTASSIUM 3.9 mmol/L (3.5-5.0); SODIUM 137 mmol/L (135-145); TOTAL PROTEIN 7.3 g/dL (6.7-8.2); TRIGLYCERIDES 173 mg/dL; VLDL CHOLESTEROL 35 mg/dL
[2021-06-15 20:13] LABS: ESTIMATED AVERAGE GLUCOSE 163 mg/dL (70-100); HEMOGLOBIN A1c% 7.3 % (4.27-6.07)
== END 2021-06-15 12:26 | disposition home or self-care (01) ==
LOC: LAB.S 12:25
PROVIDERS: ATTEND Internal Medicine
DX: E11.9 Type 2 diabetes mellitus without complications (principal); M25.571 Pain in right ankle and joints of right foot
CPT/HCPCS: 36415; 80053; 80061; 83036; 83721; 84550; 85025

== ENCOUNTER 2021-06-17 15:57 | Outpatient (CLI) | payer BC ==
--- NOTE | 2021-06-17 16:12 | SLEEP CARE CONSULTATION ---
Information from patient questionnaire entered by Ozzy Dominguez MA. I have reviewed and concur with the information entered by Ozzy Dominguez MA. This document represents the service I personally performed and the decisions made by , Nuzhat Monroy ARNP. History of Present Illness Service Date and Time: 06/17/2021 1600 Previous diagnosis: Severe, Obstructive Sleep Apnea-Hypopnea Syndrome AHI: 32.1 (in 2019) Reason for follow up: other (2 month f/u ) Equipment type: CPAP Equipment obtained from: [employer] (getting supplies as needed) Mask style: Full face Backup mask available: Yes (old mask) Prior sleep studies: Yes Year and Where: 2019 - [facility] Type of Sleep Study: Home sleep study HPI additional information: DONALD WHEATLEY was diagnosed to have severe, AHI 32.1, obstructive sleep apnea- hypopnea syndrome and returns via video Telehealth visit today for CPAP therapy 2 month follow-up. Sleep Study - Results Type of Sleep Study: Home sleep study Prior sleep studies: Yes Year and Where: 2019 - [facility] CPAP Compliance Data - Data Reviewed with Patient Average duration of nightly device use: 1 hour 53 minutes Compliance rate %: 0 Current pressure setting (cmH2O): 11 - 12 (median 9.4, avg 10.3) Average residual AHI: 0.8 Central apnea: .1 Obstructive apnea: 0 Subjective Missed days of use due to: reports: mask issues Patient concerns: reports: dry mouth, nose, throat (improved with humidity adjustment). denies: aerophagia, mask discomfort, air blowing in eyes, mask leak noise, condensation in mask/hose, nasal congestion, epistaxis, other Current pressure setting perceived as: too high On therapy, patient: reports: other (no difference in sleep and rest). denies: drowsiness while driving Initial [place] Sleepiness Scale score: 8 (in 2019) Current [place] Sleepiness Scale score: 7 Allergies and Home Medications Home medication list reviewed: Yes (no changes) Review of Systems Review of systems same as previous: Yes (no changes) Physical Exam Vital signs obtained and entered by: Telehealth visit to reduce exposure during Covid pandemic Height: 6 ft 2 in Impression and Plan 1. Obstructive Sleep Apnea-Hypopnea Syndrome, severe, with poor treatment compliance and excellent apnea control. Patient has not noted a difference in his sleep or rest improvement with CPAP but he has been unable to use it very much due to mask issues. He was just able to get his new full face mask about a week ago and has been trying to use the CPAP. He states it feels like the mask is a better fit but the pressure feels like it is too high. His average residual AHI is 0.08. I will adjust his pressure to 9 to 10 cm H2O for patient comfort. Patient advised to contact me if pressure change is uncomfortable so that it can be adjusted. Goals for apnea control discussed. Patient's apnea severity and rationale for treatment to reduce apnea, improve sleep quality and reduce cardiovascular and cerebrovascular events was reviewed. I also reviewed the benefit of consistent device use of CPAP for hypertension. Patient was encouraged to lose weight for their overall health and to reduce apneas. * Change auto CPAP pressure to 9-10 cmH2O * Notify me if snoring with mask or feeling that the pressure is too much or too little * Attempt to lose weight * Call this office if any problems using CPAP * Return for follow up in 1-2 months, or sooner if concerns arise Counseling Topics: Spare mask, Weight loss health impact Visit Type: Telehealth Video Video Type: VSee Patient Location: Car Location of Provider: Office Patient agrees and consents to this telehealth visit type: Yes Patient agrees to have their insurance billed: Yes Time Spent with Patient (minutes): 17 Provider Statement: I spent 100% of the Telehealth Video Call with the patient with greater than 50% spent counseling the patient and coordination of care.
== END 2021-06-17 15:58 | disposition home or self-care (01) ==
LOC: SC 15:57
PROVIDERS: ATTEND Nurse Practitioner Family
DX: G47.33 Obstructive sleep apnea (adult) (pediatric) (principal)

== ENCOUNTER 2021-08-15 16:12 | Outpatient (CLI) | payer BC ==
--- NOTE | 2021-08-15 16:30 | SLEEP CARE CONSULTATION ---
Information from patient questionnaire entered by Ozzy Dominguez MA. I have reviewed and concur with the information entered by Ozzy Dominguez MA. This document represents the service I personally performed and the decisions made by , Nuzhat Monroy ARNP. History of Present Illness Service Date and Time: 08/15/2021 1600 Previous diagnosis: Severe, Obstructive Sleep Apnea-Hypopnea Syndrome AHI: 32.1 (in 2019) Reason for follow up: other (2 MONTH F/U PRESSURE CHANGE) Equipment type: CPAP Equipment obtained from: [employer] (not getting supplies) Mask style: Full face Backup mask available: Yes (old mask) Prior sleep studies: Yes Year and Where: 2019 - [facility] Type of Sleep Study: Home sleep study HPI additional information: DONALD WHEATLEY was diagnosed to have severe, AHI 32.1, obstructive sleep apnea- hypopnea syndrome and returns via video Telehealth visit today for CPAP therapy 2 month with pressure change follow-up. Sleep Study - Results Type of Sleep Study: Home sleep study Prior sleep studies: Yes Year and Where: 2019 - [facility] CPAP Compliance Data - Data Reviewed with Patient Average duration of nightly device use: 4 HOURS 40 MINUTES Compliance rate %: 15 Current pressure setting (cmH2O): 9-10 Average residual AHI: 2.8 Central apnea: .2 Obstructive apnea: .8 Average large leak: 53.7 Subjective Missed days of use due to: reports: mask issues (can't tolerate mask on face/sleeps better without it on), illness (cold) Patient concerns: reports: mask discomfort, mask leak noise. denies: aerophagia, air blowing in eyes, condensation in mask/hose, nasal congestion, dry mouth, nose, throat, epistaxis, other Observed to snore while using device: No Current pressure setting perceived as: comfortable On therapy, patient: reports: other (sleeps better without it). denies: drowsiness while driving Initial [place] Sleepiness Scale score: 8 (in 2019) Current [place] Sleepiness Scale score: 10 Allergies and Home Medications Home medication list reviewed: Yes (gout medication - allopurinol ) Review of Systems Review of systems same as previous: No (Gout) Physical Exam Vital signs obtained and entered by: Telehealth visit to reduce exposure during Covid pandemic Height: 6 ft 2 in Impression and Plan 1. Obstructive Sleep Apnea-Hypopnea Syndrome, severe, with poor treatment compliance and good apnea control. Patient tries to put the CPAP mask on but he cannot sleep with it on. He states that the pressure change was comfortable. He will just wake up several times because of the mask and then take it off. He sleeps better with it off. I discussed with patient if he wanted to try another type of therapy like the Inspire implant and he would like to check this out since he is having issues with tolerating the mask. A referral will be made. I will follow up with him in 1-2 months to see how this is going. Patient's apnea severity and rationale for treatment to reduce apnea, improve sleep quality and reduce cardiovascular and cerebrovascular events was reviewed. I also reviewed the benefit of consistent device use of CPAP for hypertension. Patient was encouraged to lose weight for their overall health and to reduce apneas. * Continue auto CPAP pressure at 9-10 cmH2O * Referral for Inspire implant therapy * Notify me if snoring with mask or feeling that the pressure is too much or too little * Attempt to lose weight * Call this office if any problems using CPAP * Return for follow up in 1-2 months, or sooner if concerns arise Counseling Topics: Spare mask, Weight loss health impact Visit Type: Telehealth Video Video Type: VSee Patient Location: Home Location of Provider: Office Patient agrees and consents to this telehealth visit type: Yes Patient agrees to have their insurance billed: Yes Time Spent with Patient (minutes): 15 Provider Statement: I spent 100% of the Telehealth Video Call with the patient with greater than 50% spent counseling the patient and coordination of care.
== END 2021-08-15 16:13 | disposition home or self-care (01) ==
LOC: SC 16:12
PROVIDERS: ATTEND Nurse Practitioner Family
DX: G47.33 Obstructive sleep apnea (adult) (pediatric) (principal)

== ENCOUNTER 2021-09-13 09:16 | Outpatient (CLI) | payer BC ==
[2021-09-13 15:31] LABS: BASOPHILS % (AUTO) 0.8 %; EOSINOPHILS # (AUTO) 0.1 10^3/uL (0.0-0.7); EOSINOPHILS % (AUTO) 1.9 %; HCT - HEMATOCRIT 42.8 % (42.0-52.0); HGB - HEMOGLOBIN 14.7 g/dL (14.0-18.0); LYMPHOCYTES # (AUTO) 1.8 10^3/uL (1.5-3.5); LYMPHOCYTES % (AUTO) 38.1 %; MEAN CORPUSCULAR HEMOGLOBIN 31.1 pg (27.0-31.0); MEAN CORPUSCULAR HGB CONC 34.3 g/dL (32.0-36.0); MEAN CORPUSCULAR VOLUME 90.7 fL (80.0-94.0); MEAN PLATELET VOLUME 10.2 fL (7.4-11.4); MONOCYTES # (AUTO) 0.4 10^3/uL (0.0-1.0); MONOCYTES % (AUTO) 7.7 %; NEUTROPHILS # (AUTO) 2.5 10^3/uL (1.5-6.6); NEUTROPHILS % (AUTO) 51.3 %; PLT - PLATELET COUNT 196 10^3/uL (130-450); RED BLOOD COUNT 4.72 10^6/uL (4.70-6.10); RED CELL DISTRIBUTION WIDTH 12.5 % (12.0-15.0); WHITE BLOOD COUNT 4.8 x10^3/uL (4.8-10.8)
[2021-09-13 16:04] LABS: ALBUMIN 4.2 g/dL (3.2-5.5); ALBUMIN/GLOBULIN RATIO 1.6 (1.0-2.2); BILIRUBIN,TOTAL 0.9 mg/dL (0.2-1.0); CALCIUM 9.3 mg/dL (8.5-10.3); CREATININE 0.9 mg/dL (0.6-1.2); TOTAL PROTEIN 6.9 g/dL (6.7-8.2)
[2021-09-13 21:20] LABS: ESTIMATED AVERAGE GLUCOSE 194 mg/dL (70-100); HEMOGLOBIN A1c% 8.4 % (4.27-6.07)
== END 2021-09-13 09:17 | disposition home or self-care (01) ==
LOC: LAB.S 09:16
PROVIDERS: ATTEND Internal Medicine
DX: E11.9 Type 2 diabetes mellitus without complications (principal)
CPT/HCPCS: 36415; 80053; 83036; 85025

== ENCOUNTER 2021-10-10 16:06 | Outpatient (CLI) | payer BC ==
--- NOTE | 2021-10-10 16:16 | SLEEP CARE CONSULTATION ---
Information from patient questionnaire entered by Ozzy Dominguez MA. I have reviewed and concur with the information entered by Ozzy Dominguez MA. This document represents the service I personally performed and the decisions made by , Nuzhat Monroy ARNP. History of Present Illness Service Date and Time: 10/10/2021 1600 Previous diagnosis: Severe, Obstructive Sleep Apnea-Hypopnea Syndrome AHI: 32.1 (in 2019) Reason for follow up: other (2 MONTH F/U ) Equipment type: CPAP Equipment obtained from: [employer] (not getting supplies) Mask style: Full face Backup mask available: Yes (old mask) Last cushion change: 2-3 weeks [facility] Type of Sleep Study: Home sleep study HPI additional information: DONALD WHEATLEY was diagnosed to have severe, AHI 32.1, obstructive sleep apnea- hypopnea syndrome and returns via video telehealth visit today for CPAP therapy two month follow-up. Sleep Study - Results Type of Sleep Study: Home sleep study Prior sleep studies: Yes [facility] CP[facility] Compliance Data - Data Reviewed with Patient Average duration of nightly device use: 6 HOURS 14 MINUTES Compliance rate %: 28 (57% in last 30 days) Current pressure setting (cmH2O): 9-10 Average residual AHI: 2.7 Central apnea: .8 Obstructive apnea: .7 Subjective Patient concerns: reports: dry mouth, nose, throat (changed heated hose setting, will just adjust). denies: aerophagia, mask discomfort, air blowing in eyes, mask leak noise, condensation in mask/hose, nasal congestion, epistaxis Observed to snore while using device: No Current pressure setting perceived as: comfortable (to low) On therapy, patient: reports: sleeping better, awakening more refreshed, being more awake and alert during the day, more rested overall. denies: drowsiness while driving Initial [place] Sleepiness Scale score: 8 (in 2019) Current [place] Sleepiness Scale score: 8 Allergies and Home Medications Home medication list reviewed: Yes (no changes) Allergy and home medication list: Allergies No Known Drug Allergies Allergy (Verified 02/21/19 13:51) Review of Systems Review of systems same as previous: Yes (no changes) Physical Exam Vital signs obtained and entered by: Telehealth visit to reduce exposure during covid pandemic Height: 6 ft 2 in Weight: 270 lb Body Mass Index: 34.7 BMI Classification: Obese Impression and Plan 1. Obstructive Sleep Apnea-Hypopnea Syndrome, severe, with poor treatment compliance and good apnea control. On CPAP therapy, the patient has better sleep quality and is more rested overall. Patient has increased his compliance from last visit by 13% to 28%. At his last visit he was referred for Inspire implant therapy evaluation but he discussed this with his and they decided against it. He is feeling better about his mask fit and has been using it more. He has brought his 30 day compliance up to 57%. I will follow up again with him in 2 months to recheck compliance. He voiced agreement. Patient's apnea severity and rationale for treatment to reduce apnea, improve sleep quality and reduce cardiovascular and cerebrovascular events was reviewed. I also reviewed the benefit of consistent device use of CPAP for hypertension. 2. Obesity, unspecified. Currently patients BMI is 34.7. Obesity increases the risk of apnea, CPAP pressure requirements and overall health risks especially cardiovascular and diabetes. Thus patient is advised to[ continue to try to] lose weight. * Continue auto CPAP pressure at 9-10 cmH2O * Notify me if snoring with mask or feeling that the pressure is too much or too little * Attempt to lose weight * Call this office if any problems using CPAP * Return for follow up in 2 months, or sooner if concerns arise Counseling Topics: Spare mask, Weight loss health impact Visit Type: Telehealth Video Video Type: VSee Patient Location: Home Location of Provider: Office Patient agrees and consents to this telehealth visit type: Yes Patient agrees to have their insurance billed: Yes Time Spent with Patient (minutes): 17 Provider Statement: I spent 100% of the Telehealth Video Call with the patient with greater than 50% spent counseling the patient and coordination of care.
== END 2021-10-10 16:07 | disposition home or self-care (01) ==
LOC: SC 16:06
PROVIDERS: ATTEND Nurse Practitioner Family
DX: G47.33 Obstructive sleep apnea (adult) (pediatric) (principal); E66.9 Obesity, unspecified; Z68.34 Body mass index [BMI] 34.0-34.9, adult

== ENCOUNTER 2021-10-22 15:48 | Outpatient (CLI) | payer BC ==
--- NOTE | 2021-10-22 17:10 | Ultrasound Report ---
PROCEDURE: Carotid Doppler Complete INDICATIONS: DIZZINESS TECHNIQUE: Color and pulse Doppler interrogation was performed of both carotid systems, with image documentation and velocity measurements. COMPARISON: None. FINDINGS: Right side: Brachial blood pressure: 142/79 mm Hg. Common carotid artery peak systolic velocity: 112 cm/sec. Internal carotid artery peak systolic velocity: 73 cm/sec. Internal carotid artery end diastolic velocity: 34 cm/sec. External carotid artery peak systolic velocity: 103 cm/sec. ICA/CCA peak systolic ratio: 0.7 . Reynoso scale imaging description: Dense atheromatous plaque is present throughout the carotid bifurcat ion. Percent internal carotid artery stenosis: Less than 50% stenosis . Vertebral artery: Flow direction is antegrade. Left side: Brachial blood pressure: 136/83 mm Hg. Common carotid artery peak systolic velocity: 142 cm/sec. Internal carotid artery peak systolic velocity: 72 cm/sec. Internal carotid artery end diastolic velocity: 27 cm/sec. External carotid artery peak systolic velocity: 95 cm/sec. ICA/CCA peak systolic ratio: 0.5 . Reynoso scale imaging description: Dense atheromatous plaque is present throughout the carotid bifurcat ion. Percent internal carotid artery stenosis: Less than 50% stenosis . Vertebral artery: Flow direction is antegrade. IMPRESSION: Less than 50% stenosis of the bilateral internal carotid arteries. The estimate of stenosis included in the report of the imaging study was calculated using the NASCET method Reviewed by: Raysa Brooks MD on 10/22/2021 5:09 PM PDT Approved by: Raysa Brooks MD on 10/22/2021 5:09 PM PDT Station ID: [id number]
== END 2021-10-22 15:49 | disposition home or self-care (01) ==
LOC: DI 15:48
PROVIDERS: ATTEND Internal Medicine
DX: R42 Dizziness and giddiness (principal)
CPT/HCPCS: 93880

== ENCOUNTER 2022-11-07 07:48 | Outpatient (CLI) | payer BC ==
[2022-11-07 08:04] LABS: BASOPHILS % (AUTO) 0.7 %; EOSINOPHILS # (AUTO) 0.1 10^3/uL (0.0-0.7); EOSINOPHILS % (AUTO) 1.8 %; HCT - HEMATOCRIT 44.9 % (42.0-52.0); HGB - HEMOGLOBIN 15.4 g/dL (14.0-18.0); LYMPHOCYTES # (AUTO) 2.3 10^3/uL (1.5-3.5); LYMPHOCYTES % (AUTO) 40.1 %; MEAN CORPUSCULAR HGB CONC 34.3 g/dL (32.0-36.0); MEAN CORPUSCULAR VOLUME 87.4 fL (80.0-94.0); MEAN PLATELET VOLUME 9.9 fL (7.4-11.4); MONOCYTES # (AUTO) 0.4 10^3/uL (0.0-1.0); MONOCYTES % (AUTO) 6.7 %; NEUTROPHILS # (AUTO) 2.9 10^3/uL (1.5-6.6); NEUTROPHILS % (AUTO) 50.5 %; PLT - PLATELET COUNT 183 10^3/uL (130-450); RED BLOOD COUNT 5.14 10^6/uL (4.70-6.10); RED CELL DISTRIBUTION WIDTH 12.3 % (12.0-15.0); WHITE BLOOD COUNT 5.7 x10^3/uL (4.8-10.8)
[2022-11-07 08:36] LABS: THYROID STIMULATING HORMONE 2.88 uIU/mL (0.34-5.60)
[2022-11-07 10:38] LABS: ALBUMIN 4.2 g/dL (3.2-5.5); ALBUMIN/GLOBULIN RATIO 1.5 (1.0-2.2); ALKALINE PHOSPHATASE 55 IU/L (42-121); ALT ALANINE AMINOTRANSFERASE 47 IU/L (10-60); AST ASPARTATE AMINOTRANSFERASE 37 IU/L (10-42); BILIRUBIN,TOTAL 0.5 mg/dL (0.2-1.0); BUN - BLOOD UREA NITROGEN 12 mg/dL (6-20); CARBON DIOXIDE - CO2 29 mmol/L (21-32); CHLORIDE 100 mmol/L (101-111); CHOL/HDL RATIO 3.3 (<5.0); CHOLESTEROL 120 mg/dL; CREATININE 0.9 mg/dL (0.6-1.2); GFR - MDRD 87 (>89); GLUCOSE 334 mg/dL (70-100); HDL CHOLESTEROL 36 mg/dL; LDL CHOLESTEROL,CALCULATED 39 mg/dL; LDL/HDL RATIO 1.1 (<3.6); POTASSIUM 4.2 mmol/L (3.5-5.0); SODIUM 138 mmol/L (135-145); TRIGLYCERIDES 224 mg/dL; VLDL CHOLESTEROL 45 mg/dL
[2022-11-07 14:19] LABS: ESTIMATED AVERAGE GLUCOSE 280 mg/dL (70-100); HEMOGLOBIN A1c% 11.4 % (4.27-6.07)
== END 2022-11-07 07:49 | disposition home or self-care (01) ==
LOC: LAB 07:48
PROVIDERS: ATTEND Registered Nurse
DX: I10 Essential (primary) hypertension (principal); E11.9 Type 2 diabetes mellitus without complications; E78.5 Hyperlipidemia, unspecified; Z12.5 Encounter for screening for malignant neoplasm of prostate
CPT/HCPCS: 36415; 80053; 80061; 83036; 83721; 84153; 84443; 85025

== ENCOUNTER 2023-06-15 09:29 | Inpatient (IN) | payer BC ==
--- NOTE | 2023-06-15 10:11 | ED Physician Documentation ---
PD HPI SKIN - Stated complaint Stated Complaint: DIZZINESS,NAUSEA,LT LEG PX - Chief complaint Chief Complaint: General - History obtained from History obtained from: Patient - History of Present Illness Timing - onset: How many days ago (He has had a mild dry throat and slight cough for couple of days. Started with general malaise and fevers and chills overnight into this morning. Has noticed significant increased redness and swelling of the left lower leg with open sores.) Timing - details: Gradual onset (The patient has noticed some ulcerative lesions with swelling and tenderness in the left lower leg for several days. Onset of redness swelling and tenderness in the skin surrounding last night into today. Fever today. General unwellness last night into today. Mild sore throat but no cough.) Location: LLE Quality / character: Discolored (redness), Swelling, Draining Associated symptoms: Fever, N/V/D (nausea without vomiting nor diarrhea.) Contributing factors: No: Recent illness Similar symptoms before: Diagnosis (Has had cellulitis of the leg previously but not hospitalized in the past. Usually not associated fevers.) Recently seen: Not recently seen Review of Systems Constitutional: reports: Fever (just today) Nose: reports: Congestion. denies: Rhinorrhea / runny nose Throat: reports: Sore throat Cardiac: denies: Chest pain / pressure Respiratory: denies: Dyspnea, Cough GI: denies: Abdominal Pain, Vomiting, Diarrhea : denies: Dysuria Skin: reports: Lesions (left lower leg with ulcerative lesions few days and redness/swelling increasing significantly today.) PD PAST MEDICAL HISTORY - Past Medical History Cardiovascular: Hypertension, Other (denies PVD and has vascular surgeon with prior US evals of legs. Having sclerotherapy of veins in Jun. ) Endocrine/Autoimmune: Type 2 diabetes - Past Surgical History Past Surgical History: No - Present Medications Home Medications: Ambulatory Orders Medication Instructions Recorded Confirmed Losartan Potassium 25 mg PO DAILY 01/09/19 01/09/19 Mupirocin 1 applic TP TID #15 g 01/09/19 06/15/23 Triamterene/Hydrochlorothiazid 1 each PO DAILY 01/09/19 06/15/23 [Triamterene-Hctz 37.5-25 mg Cp] Oxycodone HCl/Acetaminophen 1 - 2 each PO Q6H PRN #14 tablet 02/21/19 06/15/23 [Percocet 5-325 mg Tablet] - Allergies Allergies/Adverse Reactions: Allergies Allergy/AdvReac Type Severity Reaction Status Date / Time No Known Drug Allergies Allergy Verified 02/21/19 13:51 - Social History Does the pt smoke?: No Smoking Status: Never smoker Does the pt drink ETOH?: Yes Does the pt have substance abuse?: No - Immunizations Immunizations are current?: Yes PD ED PE NORMAL - Vitals Vital signs reviewed: Yes - General General: Alert and oriented X 3, No acute distress, Well developed/nourished - HEENT HEENT: Ears normal, Moist mucous membranes, Pharynx benign - Neck Neck: Supple, no meningeal sign, No adenopathy - Cardiac Cardiac: No murmur. No: RRR (regular but tachycardic. ) - Respiratory Respiratory: No respiratory distress, Clear bilaterally - Abdomen Abdomen: Soft, Non tender, Non distended, Other (incidental note hernias umbi lical and right inguinal without tenderness nor firmness. ) - Back Back: No CVA TTP - Derm Derm: Normal color, Warm and dry - Extremities Extremities: Other (left lower leg with several ulcerations with pink base and yeallow/clear weeping anteriorly, surrounding redness/warmth/tender wrapping posteriorly to lateral upper calf. Not tender above knee. No inguinal nodes. Good color at toe tips. chronic stasis changes both legs. ) - Neuro Neuro: Alert and oriented X 3, No motor deficit, No sensory deficit, Normal speech Results - Vitals Vitals: Vital Signs - 24 hr 06/15/23 06/15/23 06/15/23 09:41 12:00 12:01 Temperature 39.2 C H Heart Rate 117 H 116 H 112 H Respiratory 18 18 18 Rate Blood Pressure 130/70 112/65 112/65 O2 Saturation 97 97 98 Oxygen O2 Source Room air - Labs Labs: Laboratory Tests 06/15/23 06/15/23 06/15/23 11:14 11:14 11:14 WBC 12.4 H RBC 5.23 Hgb 15.6 Hct 46.5 MCV 88.9 MCH 29.8 MCHC 33.5 RDW 12.7 Plt Count 177 MPV 9.6 Neut # (Auto) 11.1 H Lymph # (Auto) 0.7 L Dane # (Auto) 0.6 Eos # (Auto) 0.0 Baso # (Auto) 0.0 Absolute Nucleated RBC 0.00 Nucleated RBC % 0.0 Sodium 130 L Potassium 4.1 Chloride 94 L Carbon Dioxide 26 Anion Gap 10.0 BUN 22 H Creatinine 1.0 Estimated GFR (MDRD) 77 L Glucose 218 H Lactic Acid 2.8 H Calcium 9.6 Magnesium 1.6 L Total Bilirubin 0.8 AST 27 ALT 34 Alkaline Phosphatase 49 Total Creatine Kinase 169 Total Protein 6.9 Albumin 4.7 Globulin 2.2 Albumin/Globulin Ratio 2.1 Lipase 18 Nasal Adenovirus (PCR) Nasal B. parapertussis DNA (PCR) Nasal Coronavir 229E PCR Nasal Coronavir HKU1 PCR Nasal Coronavir NL63 PCR Nasal Coronavir OC43 PCR Nasal Enterovir/Rhinovir PCR Nasal Influenza B PCR Nasal Influenza A PCR Nasal Parainfluen 1 PCR Nasal Parainfluen 2 PCR Nasal Parainfluen 3 PCR Nasal Parainfluen 4 PCR Nasal RSV (PCR) Nasal B.pertussis DNA PCR Nasal C.pneumoniae (PCR) Pastor Human Metapneumo PCR Nasal M.pneumoniae (PCR) Nasal SARS-CoV-2 (PCR) 06/15/23 11:20 WBC RBC Hgb Hct MCV MCH MCHC RDW Plt Count MPV Neut # (Auto) Lymph # (Auto) Dane # (Auto) Eos # (Auto) Baso # (Auto) Absolute Nucleated RBC Nucleated RBC % Sodium Potassium Chloride Carbon Dioxide Anion Gap BUN Creatinine Estimated GFR (MDRD) Glucose Lactic Acid Calcium Magnesium Total Bilirubin AST ALT Alkaline Phosphatase Total Creatine Kinase Total Protein Albumin Globulin Albumin/Globulin Ratio Lipase Nasal Adenovirus (PCR) NOT DETECTED Nasal B. parapertussis DNA (PCR) NOT DETECTED Nasal Coronavir 229E PCR NOT DETECTED Nasal Coronavir HKU1 PCR NOT DETECTED Nasal Coronavir NL63 PCR NOT DETECTED Nasal Coronavir OC43 PCR NOT DETECTED Nasal Enterovir/Rhinovir PCR NOT DETECTED Nasal Influenza B PCR NOT DETECTED Nasal Influenza A PCR NOT DETECTED Nasal Parainfluen 1 PCR NOT DETECTED Nasal Parainfluen 2 PCR NOT DETECTED Nasal Parainfluen 3 PCR NOT DETECTED Nasal Parainfluen 4 PCR NOT DETECTED Nasal RSV (PCR) NOT DETECTED Nasal B.pertussis DNA PCR NOT DETECTED Nasal C.pneumoniae (PCR) NOT DETECTED Pastor Human Metapneumo PCR NOT DETECTED Nasal M.pneumoniae (PCR) NOT DETECTED Nasal SARS-CoV-2 (PCR) NOT DETECTED PD Medical Decision Making - ED course Complexity details: reviewed results, considered differential (The patient with some upper respiratory type symptoms and general malaise and bodyaches along with fever today. Also has redness and swelling of the left leg consistent with prior episodes of cellulitis. Consideration of viral illness concurrent with a cellulitis or bacteremia/sepsis. labs/Cx.), d/w patient ED course: The patient has had recurrent cellulitis of the lower legs, left in particular in the past. He feels current symptoms are similar. He has had superficial ulcerations for several days with weeping of clear yellow. Increased redness and swelling in the last day. Onset of fevers and general malaise and nausea overnight into this morning. He does describe a little bit of congestion and mild sore throat. No cough. Viral PCR panel is negative. He does have a temperature and elevated heart rate coming in. He does have redness swelling and tenderness in the left lower leg different from the right leg. Both have chronic stasis changes noted and scaling of the skin but the left is much more red warm and swollen. There are ulcerative changes noted and I did culture the fluid from one of them. He has not had any respiratory cough symptoms. Without another obvious source for infection, I am concerned that the leg represents a bacteremic type episode or early sepsis given some of his vitals and blood test. He was initiated with IV fluids here in the ER with normalization of his heart rate. He was given Toradol and Tylenol with improvement in his temperature. Blood cultures were obtained as well as a wound culture. I talked with the hospitalist, Dr. Chau who agrees with hospitalization for the patient due to markers of early sepsis. Departure - Departure Disposition: ED Place in Observation Clinical Impression: Left leg cellulitis, Fever, Sepsis Condition: Stable Record reviewed to determine appropriate education?: Yes Forms: PCP List
[2023-06-15] MEDS ORDERED: ACETAMINOPHEN 500 MG TABLET PO STA (11:06)
[2023-06-15] MEDS ORDERED: cefTRIAXone 2 GM VIAL IVP STA (11:07)
[2023-06-15] MEDS ORDERED: DOXYCYCLINE 100 MG TABLET PO STA (11:07)
[2023-06-15] MEDS ORDERED: KETOROLAC 15 MG/ML VIAL IVP STA (11:08)
[2023-06-15 11:21] LABS: BASOPHILS % (AUTO) 0.3 %; EOSINOPHILS % (AUTO) 0.1 %; HCT - HEMATOCRIT 46.5 % (42.0-52.0); HGB - HEMOGLOBIN 15.6 g/dL (14.0-18.0); LYMPHOCYTES # (AUTO) 0.7 10^3/uL (1.5-3.5); LYMPHOCYTES % (AUTO) 5.2 %; MEAN CORPUSCULAR HEMOGLOBIN 29.8 pg (27.0-31.0); MEAN CORPUSCULAR HGB CONC 33.5 g/dL (32.0-36.0); MEAN CORPUSCULAR VOLUME 88.9 fL (80.0-94.0); MEAN PLATELET VOLUME 9.6 fL (7.4-11.4); MONOCYTES # (AUTO) 0.6 10^3/uL (0.0-1.0); MONOCYTES % (AUTO) 4.6 %; NEUTROPHILS # (AUTO) 11.1 10^3/uL (1.5-6.6); NEUTROPHILS % (AUTO) 89.3 %; PLT - PLATELET COUNT 177 10^3/uL (130-450); RED BLOOD COUNT 5.23 10^6/uL (4.70-6.10); RED CELL DISTRIBUTION WIDTH 12.7 % (12.0-15.0); WHITE BLOOD COUNT 12.4 x10^3/uL (4.8-10.8)
[2023-06-15 11:43] LABS: ALBUMIN 4.7 g/dL (3.2-5.5); ALBUMIN/GLOBULIN RATIO 2.1 (1.0-2.2); BILIRUBIN,TOTAL 0.8 mg/dL (0.2-1.0); CALCIUM 9.6 mg/dL (8.5-10.3); MAGNESIUM 1.6 mg/dL (1.7-2.3); POTASSIUM 4.1 mmol/L (3.5-4.5); TOTAL PROTEIN 6.9 g/dL (6.4-8.9)
[2023-06-15] MEDS ORDERED: SODIUM CHLORIDE 0.9% 1,000 ML IV STA (11:49)
[2023-06-15 12:33] LABS: B. PARAPERTUSSIS- RESP PCR PAN NOT DETECTED; B. PERTUSSIS- RESP PCR PANEL NOT DETECTED; C. PNEUMONIAE- RESP PCR PANEL NOT DETECTED; CORONAVIRUS 229E-RESP PCR NOT DETECTED; CORONAVIRUS HKU1-RESP PCR NOT DETECTED; CORONAVIRUS NL63-RESP PCR NOT DETECTED; CORONAVIRUS OC43-RESP PCR NOT DETECTED; HUMAN METAPNEUMOVIRUS NOT DETECTED; INFLUENZA A- RESP PCR PANEL NOT DETECTED; INFLUENZA B - RESP PCR PANEL NOT DETECTED; M. PNEUMONIAE- RESP PCR PANEL NOT DETECTED; PARAINFLUENZA VIRUS 1 NOT DETECTED; PARAINFLUENZA VIRUS 2 NOT DETECTED; PARAINFLUENZA VIRUS 3 NOT DETECTED; PARAINFLUENZA VIRUS 4 NOT DETECTED; RHINOVIRUS/ENTEROVIRUS NOT DETECTED; RSV- RESP PCR PANEL NOT DETECTED; SARS-CoV-2 -RESP PCR PANEL NOT DETECTED
[2023-06-15] MEDS ORDERED: SODIUM CHLORIDE FLUSH 0.9% 10 ML SYRINGE IVP PRN (13:21)
[2023-06-15] MEDS ORDERED: MORPHINE 2 MG/ML CARPUJECT IVP PRN (13:21)
[2023-06-15] MEDS ORDERED: ONDANSETRON 4 MG/2 ML VIAL IVP PRN (13:21)
[2023-06-15] MEDS ORDERED: ONDANSETRON ODT 4 MG TABLET TL PRN (13:21)
[2023-06-15] MEDS ORDERED: VANCOMYCIN INJ 2 GM, VANCOMYCIN INJ 500 MG in SODIUM CHLORIDE 0.9% 500 ML IV STA (13:56)
[2023-06-15] MEDS ORDERED: SODIUM CHLORIDE 0.9% 1,000 ML IV SCH (14:00)
--- NOTE | 2023-06-15 14:24 | PHARMACY PROGRESS NOTE ---
- Therapy Status Therapy status: Awaiting steady state Basis for treatment: Empirical Treatment indication: Cellulitis with SIRS Trough goal: AUC/LISSA 400-600 Concurrent antibiotics: Meropenem 1 g q8h - MYLES Risk Risk level for Acute Kidney Injury: Moderate Acute Kidney Injury risk factors: Wt >100kg or BMI >40, Diabetes - Monitoring and Recommendation Clinical response to treatment: I&O Previous 24 hours 06/13/23 06/14/23 06/15/23 23:59 23:59 23:59 Intake Total 1000 Balance 1000 Lab Results 06/15/23 11:14 BUN 22 H Creatinine 1.0 Estimated GFR (MDRD) 77 L Monitoring plan: Daily serum creatinine Areas for additional monitoring: IV to PO when appropriate, Therapy de- escalation based on culture results Pharmacy recommendation: Continue current regime (Loading dose of 2.5 gm IV x 1, followed by maintenance dose of 1.5 gm IV q12h for estimated AUC/LISSA of 461. Appropriateness of drawing levels will be determined based on patient's status overnight and plan for duration of treatment.)
--- NOTE | 2023-06-15 15:27 | PHARMACY PROGRESS NOTE ---
- Best Possible Medication History Admit Date and Time: 06/15/23 1321 Processed by: Pharmacy Medication History completed: Yes Patient Interview: Completed (Patient interview completed by Delores (Machine Package Sealer)) Secondary Source(s): Pharmacy records, Insurance records As the person ultimately responsible for medication therapy, providers are able to order a medication from an existing home medication list in [facility] via the "Reconcile Routine" prior to Confirmation of that medication by client support coordinator. Such practice is discouraged except when the physician, in their clinical judgment, deems that a medical need exists for a medication without regard to previous use.
[2023-06-15] MEDS: ACETAMINOPHEN 325 MG TABLET PO PRN ×2 (16:44→21:09)
[2023-06-15] MEDS: MEROPENEM 1 GM in SODIUM CHLORIDE 0.9% MINIBAG 100 ML IV SCH (17:09)
[2023-06-15] MEDS: SODIUM CHLORIDE FLUSH 0.9% 10 ML SYRINGE IVP SCH (17:17)
--- NOTE | 2023-06-15 19:00 | HISTORY & PHYSICAL EXAMINATION ---
Chief Complaint - Chief Complaint Chief Complaint: Leg pain with dizzienss and nausea History of Present Illness - Admitted From Admitted From:: home - History Obtained From Records Reviewed: [facility] History obtained from: [facility] and patient Exam Limitations: none - History of Present Illness HPI Comment/Other: Mr. Hernandez is a 57 year old man with a history of PVD, DM2, HTN, and cellulitus coming in with for leg pain. He also has a reoccurring history of venous stasis dermatitis which is followed by a vascular specialist. Patient describes feeling sore throat with no cough, nausea, fever, and dizziness. The patient noticed gradual onset of ulcerative lesions with swelling and tenderness in the left lower leg for several days which has worsened last night. His ulcers are leaking clear yellow discharge. Labs show low sodium(130), low chloride(94), low mg(1.6), high BUN(22), high glucose(218), high lactic acid(2.8), high WBC(12.4). Labs indicate most like sepsis with bacteremia . Viral PCR panel is negative. He was admitted to ED with a high temperatur (39.2) and elevated heart rate (117). Blood culture and wound culture has been collected. Metformin was noted for his medication use which may have an impact on elevated lactic acid levels. He was initiated with IV fluids in the ER with normalization of his heart rate. He was given Toradol and Tylenol with improvement in his temperature. IV vanco and merepenem has been initiated for empiric abx. IV sodium chloride has been initiated for low Cl and Na. History - Past Medical History Cardiovascular: reports: Hypertension, High cholesterol, Peripheral Vascular Disease Respiratory: reports: Sleep apnea Neuro: reports: Headaches, Peripheral neuropathy, Motion sickness. denies: Head injury, Tremors Endocrine/Autoimmune: reports: Type 2 diabetes GI: reports: GERD, Other : reports: None Psych: reports: None Musculoskeletal: reports: Osteoarthritis, Chronic back pain, Other (chronic right shoulder pain) Derm: reports: None MRSA Hx?: No Other Past Medical History: umbilical hernia - Past Surgical History Cardiovascular: reports: Vascular surgery (Sclerotherapy, Vein ablation) - Family & Social History Family History: Mother: , Cancer (breast cancer ), Father: , Alcoholism, Sister: Alive and Well, Brother: Alive and Well, Alcoholism, Diabetes, Type 2, Hypertension Family History Comment/Other: 4 siblings total. 2 brothers and 2 sisters. Sisters are in good health Living arrangement: At home Living Situation: With spouse/s.o., With family - Substance History Use: Uses substance without health or social issues: Tobacco (hx of smoking 1 pack/day since 13 and quit in 2013), Alcohol (4-5 drinks 3-5 times a weeks. Understands alcohol worsens his diabetes but has not made efforts to quit. ) Abuse: Recurrent use of substance despite neg consequences: Alcohol Tobacco Details: Cigarettes - POLST Patient has POLST: No POLST Status: Full Code Meds/Allgy - Home Medications Home Medications: Ambulatory Orders Medication Instructions Recorded Confirmed Triamterene/Hydrochlorothiazid 1 cap PO DAILY 01/09/19 06/15/23 [Triamterene-Hctz 37.5-25 mg Cp] Aspirin [Aspirin EC] 81 mg PO DAILY 06/15/23 06/15/23 Empagliflozin [Jardiance] 10 mg PO QPM 06/15/23 06/15/23 Gabapentin [Neurontin] 600 mg PO DAILY 06/15/23 06/15/23 Glipizide [Glipizide Xl] 10 mg PO DAILY 06/15/23 06/15/23 Losartan [Cozaar] 50 mg PO DAILY 06/15/23 06/15/23 Metformin HCl [Metformin ER 1,000 mg PO BID 06/15/23 06/15/23 Osmotic] Multivitamin 1 tab PO DAILY 06/15/23 06/15/23 Omeprazole Magnesium 20 mg PO QDAC 06/15/23 06/15/23 Rosuvastatin Calcium [Crestor] 10 mg PO QPM 06/15/23 06/15/23 Tadalafil [Cialis] 5 mg PO DAILY 06/15/23 06/15/23 - Allergies Allergies/Adverse Reactions: Allergies Allergy/AdvReac Type Severity Reaction Status Date / Time bee venom protein (honey bee) AdvReac Edema Verified 06/16/23 07:48 Review of Systems - Constitutional Constitutional: reports: Fatigue, Chills, Weakness, Diaphoresis (warm extremeties). denies: Poor appetite - Eyes Eyes: denies: Pain - Ears, Nose & Throat Ears, Nose & Throat: denies: Ear pain, Hearing loss, Dentures, Sore throat - Cardiovascular Cariovascular: reports: Edema, Lightheadedness (when getting up). denies: Irregular heart rate, Palpitations, Chest pain, Syncope, Orthopnea - Respiratory Respiratory: reports: SOB with exertion, Other (denies dyspnea). denies: Wheezing, Hemoptysis, Orthopnea, SOB at rest - Gastrointestinal Gastrointestinal: reports: Abdominal pain (when trying to pass stool). denies: Nausea, Vomiting, Poor appetite - Genitourinary Genitourinary: denies: Dysuria, Frequency, Urgency, Hematuria, Incontinence - Musculoskeletal Musculoskeletal: reports: Muscle pain (on shoulder to arm), Muscle aches, Stiffness - Integumentary Integumentary: reports: Other (red swollen legs and feet. ulcer on left leg) - Neurological Neurological: reports: Headache, Dizziness (when getting up). denies: Slurred speech - Endocrine Endocrine: denies: Polyuria - Hematologic/Lymphatic Hematologic/Lymphatic: reports: Bruising Prior Level of Functionality: previously able to ambulate by self Exam - Vital Signs Vital Signs: Vital Signs x48h Temp Pulse Pulse Resp BP BP Pulse Ox 06/15/23 15:29 37 C 96 18 144/90 H 91 L 06/15/23 14:43 37.0 C 97 18 104/58 L 97 06/15/23 13:32 96 18 93 06/15/23 12:30 99.5 C H 18 06/15/23 12:01 112 H 18 112/65 98 06/15/23 12:00 116 H 18 112/65 97 - Physical Exam General Appearance: positive: No acute distress, Alert Eyes Bilateral: positive: Normal inspection, PERRL, Conjunctivae nml, No scleral icterus Neck: positive: No JVD Respiratory: positive: Chest non-tender, No respiratory distress, Breath sounds nml Cardiovascular: positive: Regular rate & rhythm (faint heart sounds), No murmur, No gallop Peripheral Pulses: positive: 2+ Abdomen: positive: Non-tender, No organomegaly, Nml bowel sounds, No distention Skin: positive: Warm, Dry Extremities: positive: Pedal edema, Calf tenderness, Joint swelling, Other (left lower leg is erythemic with multiple ulcers in grade 2. right leg is erythemic with no ulcer. Both legs show edema.) Neurologic/Psychiatric: positive: Oriented x3, Sensation nml, Mood/affect nml Sepsis Event Note (H) - Evaluation Current Stage of Sepsis: Sepsis (lactic acid 176) Possible source of Sepsis: positive: Skin/soft tissue - Sepsis Criteria Sepsis Criteria: Recorded Heart Rate greater than 90 bpm, WBC count greater than 12,000 or less than 4000, Metabolic: lactate > 2 mmol/L Conclusion/Plan - Problem List (1) Cellulitis Conclusion/Plan: Swollen warm left and right foot with ulcers (grade 2) on left foot and left ankle. Rule out Erysipelas due to ulcer reaching the deeper dermis. Plan Initiate IV vanco and meropenem Foot elevation Wound care management. Consult for debridement (2)sepsis Conclusion/Plan Lactic Acid 2.8> 1.9 Most like from infections from leg ulcers. Awaiting results from blood culture and wound culture, adjust abx with sensitivity. WBC 12.4 Plan: Order liver function panel to rule out liver damage from alcohol abuse Rule out increase LA levels due to metformin. Patient said he stopped taking m etformin when he started feeling sick. Initiate IV vanco and meropenem Monitor WBC levels daily (3)Chronic venous insufficiency with venous stasis Conclusion/Plan Worsening due to lack of consistent compression stocking usage. Plan Initiate Lovenox Elevate lower extremities (4)DM2 Conclusion/Plan Previously managed by metformin. Previous A1C on 11/07/2022 show high levels of 11.4. Worsening condition due to alcohol usage Glucose level 176 Plan Give subQ insulin Hold metformin due to risk of increasing Lactic acidosis level. Check A1C levels (5)Electrolyte imbalance Conclusion/Plan Hyponatremia- Sodium low 130 Hypocloremia- Cl low 94 Plan IV sodium Chloride monitor daily BMP (6)Chronic stable medical condition Conclusion/Plan HTN High cholesterol plan: Continue home med statin and losartan Order lipid panel \ Qualifiers: Site of cellulitis: extremity Site of cellulitis of extremity: lower extremity Laterality: left Qualified Code(s): L03.116 - Cellulitis of left lower limb - Lab Results Fish Bones: 06/16/23 05:42 06/16/23 05:42
[2023-06-15] MEDS: ATORVASTATIN 10 MG TABLET PO SCH (21:09)
[2023-06-15] MEDS: INSULIN LISPRO 300 UNIT/3 ML PEN SUBQ SCH (21:10)
[2023-06-15] MEDS: INSULIN GLARGINE-YFGN 300 UNIT/3 ML PEN SUBQ SCH (21:10)
[2023-06-15] MEDS ORDERED: MUPIROCIN 1 GM TP SCH (22:00)
[2023-06-16] MEDS: MEROPENEM 1 GM in SODIUM CHLORIDE 0.9% MINIBAG 100 ML IV SCH ×4 (00:36→23:52)
[2023-06-16] MEDS: ACETAMINOPHEN 325 MG TABLET PO PRN ×5 (01:23→21:28)
[2023-06-16] MEDS: VANCOMYCIN INJ 1 GM, VANCOMYCIN INJ 500 MG in SODIUM CHLORIDE 0.9% 500 ML IV SCH ×2 (01:57→13:45)
[2023-06-16] MEDS: SODIUM CHLORIDE FLUSH 0.9% 10 ML SYRINGE IVP SCH ×4 (01:57→23:53)
[2023-06-16 05:51] LABS: BASOPHILS % (AUTO) 0.4 %; HCT - HEMATOCRIT 43.5 % (42.0-52.0); HGB - HEMOGLOBIN 14.5 g/dL (14.0-18.0); LYMPHOCYTES # (AUTO) 0.8 10^3/uL (1.5-3.5); LYMPHOCYTES % (AUTO) 6.9 %; MEAN CORPUSCULAR HEMOGLOBIN 29.9 pg (27.0-31.0); MEAN CORPUSCULAR HGB CONC 33.3 g/dL (32.0-36.0); MEAN CORPUSCULAR VOLUME 89.7 fL (80.0-94.0); MEAN PLATELET VOLUME 9.7 fL (7.4-11.4); MONOCYTES # (AUTO) 0.4 10^3/uL (0.0-1.0); MONOCYTES % (AUTO) 3.5 %; NEUTROPHILS # (AUTO) 9.6 10^3/uL (1.5-6.6); NEUTROPHILS % (AUTO) 88.8 %; PLT - PLATELET COUNT 144 10^3/uL (130-450); RED BLOOD COUNT 4.85 10^6/uL (4.70-6.10); RED CELL DISTRIBUTION WIDTH 12.9 % (12.0-15.0); WHITE BLOOD COUNT 10.8 x10^3/uL (4.8-10.8)
[2023-06-16 06:09] LABS: CALCIUM 9.3 mg/dL (8.5-10.3); CRP - C-REACTIVE PROTEIN 21.5 mg/dL (<0.5); POTASSIUM 3.6 mmol/L (3.5-4.5)
[2023-06-16] MEDS: INSULIN LISPRO 300 UNIT/3 ML PEN SUBQ SCH ×4 (07:56→22:35)
[2023-06-16] MEDS: MULTIVITAMIN TABLET PO SCH (07:57)
[2023-06-16] MEDS: ENOXAPARIN 40 MG/0.4 ML SYRINGE SUBQ SCH (08:00)
[2023-06-16] MEDS: LOSARTAN 50 MG TABLET PO SCH (08:00)
[2023-06-16] MEDS: GABAPENTIN 300 MG CAPSULE PO SCH (08:00)
[2023-06-16] MEDS: ASPIRIN EC 81 MG TABLET PO SCH (08:00)
[2023-06-16 10:13] LABS: ESTIMATED AVERAGE GLUCOSE 189 mg/dL (70-100); HEMOGLOBIN A1c% 8.2 % (4.27-6.07)
--- NOTE | 2023-06-16 14:54 | PROVIDER PROGRESS NOTE ---
Assessment/Plan - Problem List (1) Cellulitis Qualifiers: Site of cellulitis: extremity Site of cellulitis of extremity: lower extremity Laterality: left Qualified Code(s): L03.116 - Cellulitis of left lower limb Assessment/Plan: Swollen warm left and right foot with ulcers (grade 2) on left foot and left ankle. Rule out Erysipelas due to ulcer reaching the deeper dermis. wound culture show Staph Aureus and beta Hemolytic strep C. Plan Continue IV vanco and meropenem Foot elevation Wound care management. Consult for debridement (2)sepsis (resolved) Conclusion/Plan Lactic Acid 2.8> 1.9> 1.4 WBC 12.4> 10.8 temperature stable Most like from infections from leg ulcers. Awaiting results from blood culture, adjust abx with sensitivity. AST and ALT normal levels at 27/34. Rule out high lactic acid levels due to liver damage from alcohol abuse Rule out increase LA levels due to metformin. Patient said he stopped taking metformin when he started feeling sick. Plan: Continue IV vanco and meropenem Monitor WBC levels daily (3)Chronic venous insufficiency with venous stasis Conclusion/Plan Worsening due to lack of consistent compression stocking usage. Plan Continue Lovenox Elevate lower extremities (4)DM2 Conclusion/Plan Previously managed by metformin. Previous A1C on 11/07/2022 show high levels of 11.4. Worsening condition due to alcohol usage Glucose level 176> 161 >132 >148 A1c 06/16 is 8.2 Plan Continue subQ insulin Hold metformin due to risk of increasing Lactic acidosis level. (5)Electrolyte imbalance Conclusion/Plan Improving Hyponatremia- Sodium low 130> 134 Improving Hypocloremia- Cl low 94> 99 Plan continue IV sodium Chloride monitor daily BMP (6)Chronic stable medical condition Conclusion/Plan HTN High cholesterol plan: Continue home med statin and losartan Order lipid panel - Current Meds Current Meds: Current Medications Generic Name Dose Route Start Last Admin Trade Name Freq PRN Reason Stop Dose Admin Acetaminophen 650 mg 06/15/23 13:21 06/16/23 12:20 Acetaminophen 325 Mg Tablet PO 650 mg Q4HR PRN Administration Pain 1 to 4, or Fever Aspirin 81 mg 06/16/23 09:00 06/16/23 08:00 Aspirin Ec 81 Mg Tablet PO 81 mg DAILY JUAN FRANCISCO Administration Atorvastatin Calcium 20 mg 06/15/23 21:00 06/15/23 21:09 Atorvastatin 10 Mg Tablet PO 20 mg QPM JUAN FRANCISCO Administration Enoxaparin Sodium 40 mg 06/16/23 09:00 06/16/23 08:00 Enoxaparin 40 Mg/0.4 Ml Syringe SUBQ 40 mg DAILY JUAN FRANCISCO Administration Gabapentin 600 mg 06/16/23 09:00 06/16/23 08:00 Gabapentin 300 Mg Capsule PO 600 mg DAILY JUAN FRANCISCO Administration Meropenem 1 gm/ Sodium 100 mls @ 200 mls/hr 06/15/23 16:00 06/16/23 08:40 Chloride IV Infused Q8H JUAN FRANCISCO Infusion Vancomycin HCl 1 gm/ 500 mls @ 250 mls/hr 06/16/23 02:00 06/16/23 13:45 Vancomycin HCl 500 mg/ Sodium IV 250 mls/hr Chloride Q12H JUAN FRANCISCO Administration Insulin Glargine-yfgn 10 unit 06/15/23 21:00 06/15/23 21:10 Insulin Glargine-Yfgn 300 Unit/3 Ml Pen SUBQ 10 unit QPM JUAN FRANCISCO Administration Insulin Human Lispro 1 - 9 unit 06/15/23 21:00 06/16/23 11:43 Insulin Lispro 300 Unit/3 Ml Pen SUBQ 1 unit 0800,1200,1700,2100 JUAN FRANCISCO Administration Protocol Losartan Potassium 50 mg 06/16/23 09:00 06/16/23 08:00 Losartan 50 Mg Tablet PO 50 mg DAILY JUAN FRANCISCO Administration Multivitamins 1 tab 06/16/23 08:00 06/16/23 07:57 Multivitamin Tablet PO 1 tab DAILYWM JUAN FRANCISCO Administration Sodium Chloride 10 ml 06/15/23 17:00 06/16/23 08:00 Sodium Chloride Flush 0.9% 10 Ml Syringe IVP 10 ml 0100,0900,1700 JUAN FRANCISCO Administration - Lab Result Fish Bone Diagrams: 06/16/23 05:42 06/16/23 05:42 Subjective - Subjective Patient Reports: Dizzines (when getting up), Headache (5/10 only willing to take tylenol), Other (feeling like theres heavy mucus when he breathes. says he feels hot) Objective Vital Signs: Vital Signs - 24 hr 06/15/23 06/15/23 06/15/23 15:29 21:55 22:37 Temperature 37 C 37.8 C 37.6 C Heart Rate [ 96 110 H 86 Brachial] Respiratory 18 20 18 Rate Blood Pressure 144/90 H 140/70 H [Left Brachial artery] Blood Pressure [Right Brachial artery] O2 Saturation 91 L 92 96 06/15/23 06/16/23 06/16/23 23:33 01:53 01:57 Temperature 38.2 C H 38.1 C H 38.1 C H Heart Rate [ 98 Brachial] Respiratory 20 Rate Blood Pressure 117/58 L [Left Brachial artery] Blood Pressure [Right Brachial artery] O2 Saturation 92 06/16/23 06/16/23 06/16/23 04:45 07:38 12:19 Temperature 37.2 C 36.8 C 37 C Heart Rate [ 87 99 95 Brachial] Respiratory 18 16 18 Rate Blood Pressure 142/79 H [Left Brachial artery] Blood Pressure 116/59 L 138/76 H [Right Brachial artery] O2 Saturation 92 92 93 Oxygen O2 Source Room air I&O (Last 24 Hrs): Intake and Output Totals x24h 06/14/23 06/15/23 06/16/23 23:59 23:59 23:59 Intake Total 3008.333 1969 Balance 3008.333 1969 General: Alert, Oriented x3, Cooperative, No acute distress HEENT: Atraumatic, PERRLA, EOMI, Mucous membr. moist/pink, Other (no icterus) Neuro: Alert, CN 2-12 Grossly Intact, Oriented Times 3 Cardiovascular: Regular rate, Normal S1, Normal S2, No murmurs, Other (faint heart sounds) Respiratory: Chest non-tender, No respiratory distress, Breath sounds nml Abdomen: Normal bowel sounds, Soft, No tenderness, No hepatospenomegaly, No masses Extremities: No edema (legs show no pitting. hot to the touch) - Results Results: Laboratory Results WBC 10.8 x10^3/uL (4.8-10.8) 06/16/23 05:42 RBC 4.85 10^6/uL (4.70-6.10) 06/16/23 05:42 Hgb 14.5 g/dL (14.0-18.0) 06/16/23 05:42 Hct 43.5 % (42.0-52.0) 06/16/23 05:42 MCV 89.7 fL (80.0-94.0) 06/16/23 05:42 MCH 29.9 pg (27.0-31.0) 06/16/23 05:42 MCHC 33.3 g/dL (32.0-36.0) 06/16/23 05:42 RDW 12.9 % (12.0-15.0) 06/16/23 05:42 Plt Count 144 10^3/uL (130-450) 06/16/23 05:42 MPV 9.7 fL (7.4-11.4) 06/16/23 05:42 Neut # (Auto) 9.6 10^3/uL (1.5-6.6) H 06/16/23 05:42 Lymph # (Auto) 0.8 10^3/uL (1.5-3.5) L 06/16/23 05:42 Elbert # (Auto) 0.4 10^3/uL (0.0-1.0) 06/16/23 05:42 Eos # (Auto) 0.0 10^3/uL (0.0-0.7) 06/16/23 05:42 Baso # (Auto) 0.0 10^3/uL (0.0-0.1) 06/16/23 05:42 Absolute Nucleated RBC 0.00 x10^3/uL 06/16/23 05:42 Nucleated RBC % 0.0 /100WBC 06/16/23 05:42 Sodium 134 mmol/L (135-145) L 06/16/23 05:42 Potassium 3.6 mmol/L (3.5-4.5) 06/16/23 05:42 Chloride 99 mmol/L (101-111) L 06/16/23 05:42 Carbon Dioxide 26 mmol/L (21-32) 06/16/23 05:42 Anion Gap 9.0 (6-13) 06/16/23 05:42 BUN 17 mg/dL (6-20) 06/16/23 05:42 Creatinine 1.0 mg/dL (0.6-1.3) 06/16/23 05:42 Estimated GFR (MDRD) 77 (>89) L 06/16/23 05:42 Glucose 137 mg/dL (74-104) H 06/16/23 05:42 POC Whole Bld Glucose 148 mg/dL (70 - 100) H 06/16/23 11:13 Estimat Average Glucose 189 mg/dL (70-100) H 06/16/23 05:42 Hemoglobin A1c % 8.2 % (4.27-6.07) H 06/16/23 05:42 Lactic Acid 1.4 mmol/L (0.5-2.2) 06/16/23 05:42 Calcium 9.3 mg/dL (8.5-10.3) 06/16/23 05:42 Magnesium 1.6 mg/dL (1.7-2.3) L 06/15/23 11:14 Total Bilirubin 0.8 mg/dL (0.2-1.0) 06/15/23 11:14 AST 27 IU/L (10-42) 06/15/23 11:14 ALT 34 IU/L (10-60) 06/15/23 11:14 Alkaline Phosphatase 49 IU/L (42-121) 06/15/23 11:14 Total Creatine Kinase 169 IU/L (30-223) 06/15/23 11:14 C-Reactive Protein 21.5 mg/dL (<0.5) H 06/16/23 05:42 Total Protein 6.9 g/dL (6.4-8.9) 06/15/23 11:14 Albumin 4.7 g/dL (3.2-5.5) 06/15/23 11:14 Globulin 2.2 g/dL (2.1-4.2) 06/15/23 11:14 Albumin/Globulin Ratio 2.1 (1.0-2.2) 06/15/23 11:14 Lipase 18 U/L (11-82) 06/15/23 11:14 Nasal Adenovirus (PCR) NOT DETECTED 06/15/23 11:20 Nasal B. parapertussis DNA (PCR) NOT DETECTED 06/15/23 11:20 Nasal Coronavir 229E PCR NOT DETECTED 06/15/23 11:20 Nasal Coronavir HKU1 PCR NOT DETECTED 06/15/23 11:20 Nasal Coronavir NL63 PCR NOT DETECTED 06/15/23 11:20 Nasal Coronavir OC43 PCR NOT DETECTED 06/15/23 11:20 Nasal Enterovir/Rhinovir PCR NOT DETECTED 06/15/23 11:20 Nasal Influenza B PCR NOT DETECTED 06/15/23 11:20 Nasal Influenza A PCR NOT DETECTED 06/15/23 11:20 Nasal Parainfluen 1 PCR NOT DETECTED 06/15/23 11:20 Nasal Parainfluen 2 PCR NOT DETECTED 06/15/23 11:20 Nasal Parainfluen 3 PCR NOT DETECTED 06/15/23 11:20 Nasal Parainfluen 4 PCR NOT DETECTED 06/15/23 11:20 Nasal RSV (PCR) NOT DETECTED 06/15/23 11:20 Nasal B.pertussis DNA PCR NOT DETECTED 06/15/23 11:20 Nasal C.pneumoniae (PCR) NOT DETECTED 06/15/23 11:20 Pastor Human Metapneumo PCR NOT DETECTED 06/15/23 11:20 Nasal M.pneumoniae (PCR) NOT DETECTED 06/15/23 11:20 Nasal SARS-CoV-2 (PCR) NOT DETECTED 06/15/23 11:20 Sepsis Event Note (H) - Evaluation Current Stage of Sepsis: Sepsis (lactic acid 176) Possible source of Sepsis: positive: Skin/soft tissue - Sepsis Criteria Sepsis Criteria: Recorded Heart Rate greater than 90 bpm, WBC count greater than 12,000 or less than 4000, Metabolic: lactate > 2 mmol/L ABX Reporting Has patient been on IV antibiotics over the past 48 hours?: Yes
[2023-06-16] MEDS: oxyCODONE 5 MG TABLET PO PRN (18:54)
[2023-06-16] MEDS ORDERED: diphenhydrAMINE 25 MG CAPSULE PO PRN (19:15)
[2023-06-16] MEDS: ATORVASTATIN 10 MG TABLET PO SCH (21:29)
[2023-06-16] MEDS: INSULIN GLARGINE-YFGN 300 UNIT/3 ML PEN SUBQ SCH (21:29)
[2023-06-17] MEDS: VANCOMYCIN INJ 1 GM, VANCOMYCIN INJ 500 MG in SODIUM CHLORIDE 0.9% 500 ML IV SCH (02:13)
[2023-06-17] MEDS: ACETAMINOPHEN 325 MG TABLET PO PRN ×2 (05:25→08:33)
[2023-06-17 05:56] LABS: BASOPHILS % (AUTO) 0.4 %; EOSINOPHILS % (AUTO) 0.2 %; HCT - HEMATOCRIT 39.4 % (42.0-52.0); HGB - HEMOGLOBIN 12.9 g/dL (14.0-18.0); LYMPHOCYTES # (AUTO) 1.1 10^3/uL (1.5-3.5); LYMPHOCYTES % (AUTO) 12.8 %; MEAN CORPUSCULAR HGB CONC 32.7 g/dL (32.0-36.0); MEAN CORPUSCULAR VOLUME 91.6 fL (80.0-94.0); MONOCYTES # (AUTO) 0.6 10^3/uL (0.0-1.0); NEUTROPHILS # (AUTO) 6.7 10^3/uL (1.5-6.6); NEUTROPHILS % (AUTO) 79.1 %; PLT - PLATELET COUNT 144 10^3/uL (130-450); RED CELL DISTRIBUTION WIDTH 13.3 % (12.0-15.0); WHITE BLOOD COUNT 8.5 x10^3/uL (4.8-10.8)
[2023-06-17 06:03] LABS: CALCIUM 8.6 mg/dL (8.5-10.3); CREATININE 0.8 mg/dL (0.6-1.3); CRP - C-REACTIVE PROTEIN 20.5 mg/dL (<0.5); POTASSIUM 3.9 mmol/L (3.5-4.5)
[2023-06-17] MEDS: oxyCODONE 5 MG TABLET PO PRN (06:08)
[2023-06-17] MEDS: MEROPENEM 1 GM in SODIUM CHLORIDE 0.9% MINIBAG 100 ML IV SCH (08:04)
[2023-06-17] MEDS: GABAPENTIN 300 MG CAPSULE PO SCH (08:04)
[2023-06-17] MEDS: LOSARTAN 50 MG TABLET PO SCH (08:05)
[2023-06-17] MEDS: MULTIVITAMIN TABLET PO SCH (08:05)
[2023-06-17] MEDS: ASPIRIN EC 81 MG TABLET PO SCH (08:05)
[2023-06-17] MEDS: ENOXAPARIN 40 MG/0.4 ML SYRINGE SUBQ SCH (08:05)
[2023-06-17 08:51] VITALS: BP 128/75; O2SAT 93
--- NOTE | 2023-06-17 09:00 | Discharge Plan ---
Discharge Plan Problem Reviewed?: Yes Disposition: Home, Self Care Condition: Stable Prescriptions: Sulfamethox/Trimeth 800/160 [Bactrim Ds] 1 tablet PO BID 7 Days #14 tablet cephALEXin [Keflex] 500 mg PO Q6H #28 cap Diet: Diabetic Activity Restrictions: Activity as Tolerated Shower Restrictions: No Driving Restrictions: No Instruction Topics: Meropenem injection, Vancomycin injection Health Concerns: You are a moderately overweight white male who is with chronic alcohol abuse and also have diabetes complicated by chronic venous insufficiency of the legs and chronic venous skin disease of the legs. He presented to the emergency room with a gradual onset of ulcers of the left lower leg for several days. They suddenly got worse overnight with more pain, redness and swelling of the skin of the left leg. You came to the emergency room and we found you to have sepsis from skin infection of the legs complicated by uncontrolled diabetes. You have gradually responded to intravenous antibiotics. The cultures have shown you to have staff aureus and Streptococcus growing in your wound. Your blood cultures are negative. All the criteria the causes to believe you have sepsis have now resolved. Your white cell count is normal, temperature is normal, pulses normal. You no longer have lactic acidosis. Of note, lactic acidosis can be caused by your metformin. Plan of Treatment: 1. Please see your primary care provider in follow-up in the next 1 to 2 weeks. 2. Please keep the wounds of your left lower extremity clean and dry. Wash them daily with liquid soap. Not a bar of soap. Dry them carefully. If the wound still seems a little wet, you can dry it with a blow dryer set on a low setting. Cover with a nonadhesive pad, and then wrapped the leg with white Kerlix bandage. 3. Have your primary care provider refer you to the wound clinic to see if you need chronic wound management. 4. Please complete antibiotic therapy with Keflex capsules, 1 capsule 4 times a day. Bactrim tablet, 1 tablet twice a day. You will do this for the next 7 days. 5. We have asked you to please stop drinking any and all alcohol 6. Your diabetes is uncontrolled. Glycosylated hemoglobin is 8.2%. Goal is to be less than 7%. I understand that you are now doing diabetic classes with your first last week before admission. Please continue with diabetic classes. And discussed with the ski patrol officer and the ict educator if a treatment regimen change is in order. For instance she may be candidate for Ozempic. 7. You are followed by a vascular specialist in venous insufficiency. You see him in [place]. Please ask him if you could be referred for lymphedema therapy. In the meantime I have also shown you compression devices that you can buy from [employer] to put on your legs when your legs are elevated to help your legs stay shrunken. Please use Unna boots, or compression stockings to keep your legs without edema. Care Goals: To have complete healing of the ulcers of your left leg, control of your diabetes, and control of the chronic leg swelling. Assessment: Patient is alert, oriented. Understands discharge instructions. is at the bedside and her questions were answered as well. Her main concern is getting access to medications today since his Thanksgiving. I am hoping that pharmacy will send him home with 1 days worth of medications which would be 1 Bactrim tablet, and 3 Keflex tablets. Follow-Up Care: [facility] - Diabetes Ed No Smoking: If you smoke, Please STOP! Call for help. Follow-up with: Nalini Mendez ARNP [Primary Care Provider] -
--- NOTE | 2023-06-17 09:10 | DISCHARGE SUMMARY ---
"Discharge Summary Admit Date: 06/15/23 Discharge Date: 06/17/23 Discharging Provider: Gabi Somers Primary Care Provider: Nalini Mendez Code Status: Attempt Resuscitation Condition at Discharge: Fair Discharge Disposition: 01 Home, Self Care - DIAGNOSES Discharge Diagnoses with Status of Each Condition: (1)sepsis (2) Cellulitis (3)Chronic venous insufficiency with venous stasis (4)DM2 (5)Electrolyte imbalance (6)Chronic stable medical condition HTN High cholesterol - HPI History of Present Illness: Mr. Hernandez is a 57 year old man with a history of PVD, DM2, HTN, and cellulitus coming in with for leg pain. He also has a reoccurring history of venous stasis dermatitis which is followed by a vascular specialist. Patient describes feeling sore throat with no cough, nausea, fever, and dizziness. The patient noticed gradual onset of ulcerative lesions with swelling and tenderness in the left lower leg for several days which has worsened last night. His ulcers are leaking clear yellow discharge. Labs show low sodium(130), low chloride(94), low mg(1.6), high BUN(22), high glucose(218), high lactic acid(2.8), high WBC(12.4). Labs indicate most like sepsis with bacteremia . Viral PCR panel is negative. He was admitted to ED with a high temperatur (39.2) and elevated heart rate (117). Blood culture and wound culture has been collected. Metformin was noted for his medication use which may have an impact on elevated lactic acid levels. He was initiated with IV fluids in the ER with normalization of his heart rate. He was given Toradol and Tylenol with improvement in his temperature. IV vanco and merepenem has been initiated for empiric abx. IV sodium chloride has been initiated for low Cl and Na. History - Past Medical History Cardiovascular: reports: Hypertension, High cholesterol, Peripheral Vascular Disease Respiratory: reports: Sleep apnea Neuro: reports: Headaches, Peripheral neuropathy, Motion sickness. denies: Head injury, Tremors Endocrine/Autoimmune: reports: Type 2 diabetes GI: reports: GERD, Other : reports: None Psych: reports: None Musculoskeletal: reports: Osteoarthritis, Chronic back pain, Other (chronic right shoulder pain) Derm: reports: None MRSA Hx?: No Other Past Medical History: umbilical hernia - Past Surgical History Cardiovascular: reports: Vascular surgery (Sclerotherapy, Vein ablation) - CONSULTS | PROCEDURES Procedures: Bc neg after 1 day Wound culture show MSSA and beta hemolytic group c strep - HOSPITAL COURSE Hospital Course: Pt was admitted with sepsis and cellulites with would cultures showing MSSA and Beta hemolytic strep croup C. He was treated with IV vanco and meropenem and is being discharged with Bactrim and kelfex. His fever was tx with toradol and tylenol and his low Cl and NA was tx with IV sodium chloride. He is being disc harged with no fever for 24hrs, stable electrolytes, and normal WBC count. Patient is ambulating, eat, voiding, and passing bowel movements normally. Discharge orders: 1. Please see your primary care provider in follow-up in the next 1 to 2 weeks. 2. Please keep the wounds of your left lower extremity clean and dry. Wash them daily with liquid soap. Not a bar of soap. Dry them carefully. If the wound still seems a little wet, you can dry it with a blow dryer set on a low setting. Cover with a nonadhesive pad, and then wrapped the leg with white Kerlix bandage. 3. Have your primary care provider refer you to the wound clinic to see if you need chronic wound management. 4. Please complete antibiotic therapy with Keflex capsules, 1 capsule 4 times a day. Bactrim tablet, 1 tablet twice a day. You will do this for the next 7 days. 5. We have asked you to please stop drinking any and all alcohol 6. Your diabetes is uncontrolled. Glycosylated hemoglobin is 8.2%. Goal is to be less than 7%. I understand that you are now doing diabetic classes with your first last week before admission. Please continue with diabetic classes. And discussed with the shoe cobbler and the health promotion educator if a treatment regimen change is in order. For instance she may be candidate for Ozempic. 7. You are followed by a vascular specialist in venous insufficiency. You see him in [place]. Please ask him if you could be referred for lymphedema therapy. In the meantime I have also shown you compression devices that you can buy from [employer] to put on your legs when your legs are elevated to help your legs stay shrunken. Please use Unna boots, or compression stockings to keep your legs without edema. - ALLERGIES Allergies/Adverse Reactions: Allergies Allergy/AdvReac Type Severity Reaction Status Date / Time bee venom protein (honey bee) AdvReac Edema Verified 06/16/23 07:48 - MEDICATIONS Home Medications: Ambulatory Orders Medication Instructions Recorded Confirmed Triamterene/Hydrochlorothiazid 1 cap PO DAILY 01/09/19 06/15/23 [Triamterene-Hctz 37.5-25 mg Cp] Aspirin [Aspirin EC] 81 mg PO DAILY 06/15/23 06/15/23 Empagliflozin [Jardiance] 10 mg PO QPM 06/15/23 06/15/23 Gabapentin [Neurontin] 600 mg PO DAILY 06/15/23 06/15/23 Glipizide [Glipizide Xl] 10 mg PO DAILY 06/15/23 06/15/23 Losartan [Cozaar] 50 mg PO DAILY 06/15/23 06/15/23 Metformin HCl [Metformin ER 1,000 mg PO BID 06/15/23 06/15/23 Osmotic] Multivitamin 1 tab PO DAILY 06/15/23 06/15/23 Omeprazole Magnesium 20 mg PO QDAC 06/15/23 06/15/23 Rosuvastatin Calcium [Crestor] 10 mg PO QPM 06/15/23 06/15/23 Tadalafil [Cialis] 5 mg PO DAILY 06/15/23 06/15/23 Sulfamethox/Trimeth 800/160 1 tablet PO BID 7 Days #14 tablet 06/17/23 [Bactrim Ds] cephALEXin [Keflex] 500 mg PO Q6H #28 cap 06/17/23 - PHYSICAL EXAM AT DISCHARGE General Appearance: positive: No acute distress, Alert, Mild distress Eyes Bilateral: positive: Normal inspection, PERRL, EOMI, Conjunctivae nml, No scleral icterus ENT: positive: ENT inspection nml, Pharynx nml, No signs of dehydration Neck: positive: Nml inspection, No JVD, Trachea midline Respiratory: positive: Chest non-tender, No respiratory distress, Breath sounds nml Cardiovascular: positive: Regular rate & rhythm, No murmur, No gallop Peripheral Pulses: positive: 2+ Abdomen: positive: Non-tender, No organomegaly, Nml bowel sounds, No distention Skin: positive: Warm, Other Extremities: positive: Other (left leg with 2 draining ulcers. Bi lateral Legs are less hot, less red, less swollen than admission. ) Neurologic/Psychiatric: positive: Oriented x3, Sensation nml, Mood/affect nml Physical Exam Other/Comments: Middle age man who is having stable breathing on room air. He has difficulties shifting himself to sit up in the bed and get short of breath easily. He shows no bruising or redness other than his lower legs. he has a distended abdomen that is soft and non tender. - LABS Result Diagrams: 06/17/23 05:20 06/17/23 05:20 - SEPSIS Current Stage of Sepsis: Resolved Possible source of Sepsis: Skin/soft tissue Confirmed Source and Organism (if known) of Sepsis: would cultures from leg ulcers showed MSSA and Beta hemolytic strep yazminup C Sepsis Criteria: Recorded Heart Rate greater than 90 bpm, WBC count greater than 12,000 or less than 4000, Metabolic: lactate > 2 mmol/L - QUALITY (Female Hip Fx Only) Was patient sent home on osteoporosis medication?: No - TIME SPENT Time Spent in Discharge (Minutes): 30"
[2023-06-17] MEDS ORDERED: SULFAMETH/TRIMETH DS 800/160 MG TABLET PO SCH (10:00)
[2023-06-17] MEDS ORDERED: cephALEXin 250 MG CAPSULE PO SCH (10:00)
[2023-06-17] MEDS: INSULIN LISPRO 300 UNIT/3 ML PEN SUBQ SCH (10:16)
== END 2023-06-17 10:20 | disposition home or self-care (01) | DRG 872 ==
LOC: ED 09:29 → UNDOADMOB 13:21 → MS2 13:21 → OBSVTOIN 16:02 → INTOOBSV 16:02 → OBSVTOIN 06-16 16:02 → MS2 06-16 16:02 → UNDODISIN 06-17 10:20
PROVIDERS: ADMIT Specialist; ATTEND Specialist
DX: A41.01 Sepsis due to Methicillin susceptible Staphylococcus aureus (principal); L03.116 Cellulitis of left lower limb; L97.929 Non-pressure chronic ulcer of unspecified part of left lower leg with unspecified severity; L97.518 Non-pressure chronic ulcer of other part of right foot with other specified severity; E87.1 Hypo-osmolality and hyponatremia; E11.622 Type 2 diabetes mellitus with other skin ulcer; Z79.84 Long term (current) use of oral hypoglycemic drugs; F10.10 Alcohol abuse, uncomplicated; I87.8 Other specified disorders of veins; I87.2 Venous insufficiency (chronic) (peripheral); I10 Essential (primary) hypertension; E78.00 Pure hypercholesterolemia, unspecified; E11.51 Type 2 diabetes mellitus with diabetic peripheral angiopathy without gangrene; E11.65 Type 2 diabetes mellitus with hyperglycemia; Z87.891 Personal history of nicotine dependence; E87.8 Other disorders of electrolyte and fluid balance, not elsewhere classified
CPT/HCPCS: 36415; 80048; 80053; 82550; 83036; 83605; 83690; 83735; 85025; 86140; 87040; 87070; 87181; 87205; 87633; 93005; 96365; 96366; 96375; 99284; 99285; A9270; G0378; J1650; J1815; J2185; J3370

== ENCOUNTER 2023-11-24 07:12 | Outpatient (CLI) | payer BC ==
[2023-11-24 14:21] LABS: BASOPHILS # (AUTO) 0.1 10^3/uL (0.0-0.1); EOSINOPHILS # (AUTO) 0.2 10^3/uL (0.0-0.7); EOSINOPHILS % (AUTO) 2.6 %; HGB - HEMOGLOBIN 15.2 g/dL (14.0-18.0); LYMPHOCYTES # (AUTO) 2.3 10^3/uL (1.5-3.5); LYMPHOCYTES % (AUTO) 38.3 %; MEAN CORPUSCULAR HEMOGLOBIN 30.2 pg (27.0-31.0); MEAN CORPUSCULAR VOLUME 91.5 fL (80.0-94.0); MEAN PLATELET VOLUME 10.1 fL (7.4-11.4); MONOCYTES # (AUTO) 0.5 10^3/uL (0.0-1.0); MONOCYTES % (AUTO) 7.7 %; NEUTROPHILS % (AUTO) 50.2 %; PLT - PLATELET COUNT 233 10^3/uL (130-450); RED BLOOD COUNT 5.03 10^6/uL (4.70-6.10); RED CELL DISTRIBUTION WIDTH 12.9 % (12.0-15.0); WHITE BLOOD COUNT 5.9 x10^3/uL (4.8-10.8)
[2023-11-24 14:30] LABS: ALBUMIN 4.4 g/dL (3.2-5.5); ALBUMIN/GLOBULIN RATIO 1.7 (1.0-2.2); ALKALINE PHOSPHATASE 57 IU/L (42-121); ALT ALANINE AMINOTRANSFERASE 30 IU/L (10-60); AST ASPARTATE AMINOTRANSFERASE 23 IU/L (10-42); BILIRUBIN,TOTAL 0.5 mg/dL (0.2-1.0); BUN - BLOOD UREA NITROGEN 20 mg/dL (6-20); CALCIUM 10.2 mg/dL (8.5-10.3); CARBON DIOXIDE - CO2 28 mmol/L (21-32); CHLORIDE 104 mmol/L (101-111); CHOL/HDL RATIO 3.4 (<5.0); CHOLESTEROL 133 mg/dL; CREATININE 0.9 mg/dL (0.6-1.3); GFR - MDRD 87 (>89); GLUCOSE 208 mg/dL (74-104); HDL CHOLESTEROL 39 mg/dL; LDL CHOLESTEROL,CALCULATED 23 mg/dL; LDL/HDL RATIO 0.6 (<3.6); POTASSIUM 4.2 mmol/L (3.5-4.5); SODIUM 140 mmol/L (135-145); TRIGLYCERIDES 354 mg/dL (48-352); VLDL CHOLESTEROL 71 mg/dL
[2023-11-24 14:43] LABS: THYROID STIMULATING HORMONE 2.95 uIU/mL (0.34-5.60)
[2023-11-24 14:49] LABS: CREATININE,URINE 62.8 mg/dL; MICROALBUM/CREATININE RATIO,UR 11.1 ug/mg (<30.0); MICROALBUMIN,URINE 0.7 mg/dL
[2023-11-24 21:00] LABS: ESTIMATED AVERAGE GLUCOSE 206 mg/dL (70-100); HEMOGLOBIN A1c% 8.8 % (4.27-6.07)
== END 2023-11-24 07:13 | disposition home or self-care (01) ==
LOC: LAB.S 07:12
PROVIDERS: ATTEND Registered Nurse
DX: E11.8 Type 2 diabetes mellitus with unspecified complications (principal); Z12.5 Encounter for screening for malignant neoplasm of prostate; Z13.228 Encounter for screening for other metabolic disorders; Z13.220 Encounter for screening for lipoid disorders; Z13.29 Encounter for screening for other suspected endocrine disorder; Z13.0 Encounter for screening for diseases of the blood and blood-forming organs and certain disorders involving the immune mechanism
CPT/HCPCS: 36415; 80053; 80061; 82043; 82570; 83036; 83721; 84153; 84443; 85025